=== PATIENT | female | born 1930 | race Caucasian/White ===

== ENCOUNTER 2018-01-30 18:01 | Inpatient (IN) | payer BC, MEDICARE ==
--- NOTE | 2018-01-30 18:03 | ER Report ---
History and Physical Time Seen By MD: 18:03 HPI/ROS CHIEF COMPLAINT: Trip and fall, left hip pain HISTORY OF PRESENT ILLNESS: 87-year-old female brought in by EMS from [facility] after a fall. Patient's complaining of left hip and pelvis pain. She was ambulatory after the fall. But with significant discomfort. EMS placed her in a pelvic binder and brought her to the emergency department. Patient denies syncope. She does have advanced dementia. Her work from [facility] for additional information. 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 Cardiovascular: No chest pain, no palpitations. Gastrointestinal: No vomiting, no abdominal pain. Musculoskeletal: No back pain. Allergies: Coded Allergies: No Known Drug Allergies (Unverified , 01/30/18) Home Meds Reported Medications Propylene Glycol/Peg 400/Pf (Systane 0.3-0.4% Eye Drops) 0.3 %-0.4 % Droperette , 2 DROP OP QDAY 01/31/18 Cholecalciferol (Vitamin D3) (VITAMIN D3) 1,000 Unit Tablet, 1000 UNIT PO BID, TAB 01/31/18 Ziprasidone Hcl (ZIPRASIDONE HCL) 60 Mg Capsule, 60 MG PO BID, CAPSULE 01/30/18 Vitamin E (VITAMIN E) 400 Unit Capsule, 400 UNIT PO QDAY, CAPSULE 01/30/18 [place] Jones (TUCKS) 1 Each Med..pad, 1 EACH TP 01/30/18 Tramadol Hcl (TRAMADOL HCL) 50 Mg Tablet, 50 MG PO QDAY Y for PAIN, TAB 01/30/18 Sertraline Hcl (SERTRALINE HCL) 50 Mg Tablet, 3 TAB PO QDAY, TAB 01/30/18 Mirtazapine (MIRTAZAPINE) 15 Mg Tablet, 15 MG PO QHS 01/30/18 Polyethylene Glycol 3350 (MIRALAX) 17 Gm Powd.pack, 17 GM PO QDAY, PKT 01/30/18 Mag Hydrox/Aluminum Hyd/Simeth (Maalox Advanced Suspension) 200 Mg-200 Mg-20 Mg/ 5 Ml Oral.susp, 30 ML PO Y for DYSPEPSIA 01/30/18 Lorazepam (LORAZEPAM) 1 Mg Tab, 1 MG PO Q6H for Anxiety, TAB 01/30/18 Multivitamin (MULTIVITAMINS) 1 Each Capsule, 1 EACH PO QDAY, CAPSULE 01/30/18 Simethicone (SIMETHICONE) 125 Mg Tab.chew, 125 MG PO Y for GAS, TAB.CHEW 01/30/18 [place]-3 Fatty Acids/Fish Oil (FISH OIL 1,000 MG SOFTGEL) 1 Each Capsule, 1 EACH PO TID, CAPSULE 01/30/18 Docusate Sodium (COLACE) 100 Mg Capsule, 100 MG PO QHS, CAPSULE 01/30/18 Methylcellulose (With Sugar) (CITRUCEL POWDER) 454 Gm Powder, 2 GM PO QHS 01/30/18 Multivitamin/Iron/Folic Acid (CENTRUM COMPLETE MULTIVIT TAB) 1 Each Tablet, 1 EACH PO QDAY 01/30/18 Calcium Carbonate (CALCIUM) 600 Mg Tablet, 600 MG PO BID 01/30/18 Aspirin (ASPIR 81) 81 Mg Tablet.dr, 81 MG PO QDAY, TAB 01/30/18 Acetaminophen (TYLENOL) 325 Mg Tablet, 650 MG PO Q4H Y for PAIN/TEMP OVER 100.4 , TAB 01/30/18 Discontinued Reported Medications Cholecalciferol (Vitamin D3) (VITAMIN D-3) 2,000 Unit Capsule, 1000 UNIT PO, CAPSULE 01/30/18 Ziprasidone Hcl (ZIPRASIDONE HCL) 20 Mg Capsule, 20 MG PO, CAPSULE 01/30/18 [place]-3/Dha/Epa/Fish Oil (Fish Oil 1,000 mg Softgel) 1,000 Mg (120 Mg-180 Mg) Capsule 01/30/18 Methylcellulose (With Sugar) (CITRUCEL POWDER) 454 Gm Powder, 2 GM PO PRN 01/30/18 Past Medical/Surgical History Patient has a history of coronary artery disease, chronic myelogenous leukemia in remission, thrombocytopenia, hyperglycemia, macular degeneration, spinal stenosis, allergic rhinitis, osteoarthritis, 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 Reviewed Nurses Notes: Yes Old Medical Records Reviewed: Yes Constitutional Vital Sign - Last 24 Hours 01/30/18 01/30/18 01/30/18 01/30/18 18:07 18:28 18:31 18:46 Temp 97.8 Pulse 69 70 70 Resp 20 B/P (MAP) 122/60 122/60 (80) Pulse Ox 92 92 90 O2 Delivery Room Air 01/30/18 01/30/18 01/30/18 01/30/18 18:51 19:06 19:36 19:41 Pulse 71 69 72 B/P (MAP) 138/72 (94) Pulse Ox 90 93 93 01/30/18 01/30/18 01/30/18 01/30/18 19:51 20:30 21:00 21:05 Pulse 73 72 Resp 21 26 B/P (MAP) 114/60 (78) 135/61 (85) Pulse Ox 91 96 01/30/18 01/30/18 01/30/18 01/30/18 21:20 21:25 21:30 21:40 Pulse 75 75 74 Resp 26 25 26 B/P (MAP) 128/59 (82) Pulse Ox 91 90 91 01/30/18 01/30/18 01/30/18 01/30/18 21:55 22:00 22:10 22:25 Pulse 77 75 79 Resp 23 20 23 B/P (MAP) 120/69 (86) Pulse Ox 94 88 Physical Exam Vital signs stable, afebrile, pulse ox normal General Appearance: The patient is alert, has no immediate need for airway protection and no current signs of toxicity. Mild distress, alert and oriented , obvious dementia, palpation of the head and neck reveal no tenderness or trauma HEENT: Pupils equal and round no injection. Oropharynx without redness or exudate, mucous membranes are moist, no dental trauma noted Respiratory: Chest is non tender, lungs are clear to auscultation. No chest wall tenderness on palpation Cardiac: regular rate and rhythm Gastrointestinal: Abdomen is soft and non tender, no masses, bowel sounds normal. Musculoskeletal: Neck: Neck is supple and non tender. Extremities have full range of motion and are non tender. There is tenderness on palpation of the left hip region. There is pain with movement of the left hip, left lower extremity is neurovascularly intact. There is no external rotation or shortening noted Skin: No rashes or lesions. DIFFERENTIAL DIAGNOSIS: After history and physical exam differential diagnosis was considered for fall in the elderly including but not limited to intracranial injury, long bone and pelvic bone fracture, spinal injury, and intrathoracic injury. Medical Decision Making Data Points Result Diagram: 01/31/18 1207 01/31/18 0550 Laboratory Hematology Test 01/30/18 00:00 01/30/18 19:42 Prothrombin Time 13.8 seconds (12.0-14.4) Prothromb Time International Ratio 1.05 Activated Partial Thromboplast Time 28 seconds (23-35) Magnesium Level 2.1 mg/dl (1.7-2.2) Troponin I < 0.012 ng/ml Chemistry Test 01/30/18 00:00 01/30/18 19:42 Prothrombin Time 13.8 seconds (12.0-14.4) Prothromb Time International Ratio 1.05 Activated Partial Thromboplast Time 28 seconds (23-35) Magnesium Level 2.1 mg/dl (1.7-2.2) Troponin I < 0.012 ng/ml Coagulation Test 01/30/18 00:00 Prothrombin Time 13.8 seconds Prothromb Time International Ratio 1.05 Activated Partial Thromboplast Time 28 seconds EKG/Imaging EKG Interpretation 12 lead EK Rhythm: normal sinus rhythm [place]: normal QRS: Right bundle branch block pattern,? Old anterior Q waves ST segments: normal Imaging X-ray: Left hip 3 views was obtained. I viewed the images myself on the PACS system. My interpretation of the images is: There is a suspicious lucency of the left inferior initial ringing. Radiology notes no obvious fracture. The radiologist interpretation had no clinically significant variation from this interpretation. Results: CT scan of the pelvis without contrast was obtained. The results of the study are PELVIS W/O CONTRAST Indication: Fall, unable to bear weight. Comparison: None. Technique: CT from the iliac crest through the pubic symphysis obtained without contrast. One of the following dose optimization techniques was utilized in the performance of this exam: Automated exposure control; adjustment of the mA and/ or kV according to the patient's size; or use of an iterative reconstruction technique. Specific details can be referenced in the facility's radiology CT exam operational policy. Findings: Minimally displaced fractures are seen left superior and inferior pubic ramus. Proximal right and left femur are intact. Nondisplaced fracture of the anterior portion of the left sacral joaquin are seen. There is mild widening of the left sacroiliac joint. Right sacral joaquin and right sacroiliac joints are normal. Right and left iliac bones are normal. Right and left hip joints are in good alignment. Soft tissues demonstrate mild thickening of the left pectineus muscle, consistent with contusion. There is a moderate amount of free fluid adjacent to the urinary bladder, consistent with hematoma. Diverticular changes are seen on the sigmoid colon. IMPRESSION: 1. Minimally displaced fractures involving the superior and inferior left pubic ramus, and the left sacral joaquin. 2. Mild displacement of the left sacroiliac joint. 3. Small amount of free fluid in the left side of the pelvis, consistent with hematoma. The study was read by the radiologist. I viewed the images myself on the PACS system. ED Course/Re-evaluation Clinical Indication for ER IV: Hydration, IV Access ED Course Patient was admitted to an examination room. H&P was done. The differential diagnoses was considered. On clinical examination. Patient has a painful left hip area. On examination. Her left lower externally is neurovascularly intact. Diagnostic x-rays are suspicious for fracture. We proceeded to CT scan of the pelvis. Further diagnostic evaluation was completed to rule out medical causes for her fall. She has elevated white blood cell count of 44, 000. She has a history of CML in remission. Her coags are normal. Her H&H is stable. Her vital signs remained stable throughout her several hour ER course. Consideration for transfer, the weather conditions are quite severe. It is potentially dangerous to transfer the patient tonight. Patient will be admitted to general surgery under trauma care by Dr. Charley Snyder. 01/30/2018 8:57:14 pm case discussed with Dr. Elías Johansen orthopedics on-call, who advised that she be transferred to a facility with a higher level of orthopedic care. She may need interventional radiologist for the hematoma in her pelvis. 01/30/2018 9:33:16 pm case discussed with Dr. Jomar Taylor trauma surgery at [facility] and Dr. Charley Snyder, general surgery on-call here at [facility], who agrees to watch the patient overnight and then transfer in the morning when the roads her safe for travel by EMS. Decision to Disposition Date: Jan 30, 2018 Decision to Disposition Time: 19:01 Critical Care Time I spent a total of 60 minutes of critical care time in obtaining history, performing a physical exam, bedside monitoring of interventions, collecting and interpreting tests and discussion with consultants but not including time spent performing procedures. Depart Departure Latest Vital Signs Vital Signs Date Time Temp Pulse Resp B/P (MAP) Pulse Ox O2 Delivery O2 Flow Rate FiO2 01/30/18 22:25 79 23 88 01/30/18 22:00 120/69 (86) 01/30/18 18:07 97.8 Room Air Impression: Primary Impression: Pelvic ring fracture Additional Impressions: Fall in elderly patient CML in remission Thrombocytopenia Dementia Condition: Improved Disposition: Admitted from ER Referrals: [facility] (PCP) Problem Qualifiers Primary Impression: Pelvic ring fracture Encounter type: initial encounter Fracture type: closed Qualified Codes: S32.810A - Multiple fractures of pelvis with stable disruption of pelvic ring, initial encounter for closed fracture Additional Impressions: Dementia Dementia type: unspecified type Dementia behavioral disturbance: without behavioral disturbance Qualified Codes: F03.90 - Unspecified dementia without behavioral disturbance AUTUMN BECKFORD DO Jan 30, 2018 18:03
[2018-01-30] MEDS ORDERED: LOR1 PO (18:42)
[2018-01-30] MEDS ORDERED: WITC1MED12 TP (18:42)
[2018-01-30] MEDS ORDERED: CHOL200074 PO (18:42)
[2018-01-30] MEDS ORDERED: OMEG10007 (18:42)
[2018-01-30] MEDS ORDERED: POLY17PO25 PO (18:42)
[2018-01-30] MEDS ORDERED: ASPI-1471 PO (18:42)
[2018-01-30] MEDS ORDERED: ACET-1966 PO (18:42)
[2018-01-30] MEDS ORDERED: ZIPR20CA23 PO (18:42)
[2018-01-30] MEDS ORDERED: MIRT-22 PO (18:42)
[2018-01-30] MEDS ORDERED: MAG-65 PO (18:42)
[2018-01-30] MEDS ORDERED: SERT-184 PO (18:42)
[2018-01-30] MEDS ORDERED: TRAM-420 PO (18:42)
[2018-01-30] MEDS ORDERED: ZIPR60CA18 PO (18:42)
[2018-01-30] MEDS ORDERED: MULT-768 PO (18:42)
[2018-01-30] MEDS ORDERED: METH454P5 PO ×2 (18:42)
[2018-01-30] MEDS ORDERED: MULT1CAP59 PO (18:42)
[2018-01-30] MEDS ORDERED: OMEG-23 PO (18:42)
[2018-01-30] MEDS ORDERED: DOCU-416 PO (18:42)
[2018-01-30] MEDS ORDERED: CALC600T63 PO (18:42)
[2018-01-30] MEDS ORDERED: SIME125T3 PO (18:42)
[2018-01-30] MEDS ORDERED: VITA-139 PO (18:42)
--- NOTE | 2018-01-30 18:51 | RADIOLOGY IMAGING REPORT ---
FACILITY: [facility] [place] PATIENT NAME: Ginna Morfin : 1930 MR: [id number] V: [id number] EXAM DATE: ORDERING PHYSICIAN: AUTUMN BECKFORD TECHNOLOGIST: [place] [facility] [place] Ginna Morfin : 1930 Visit/Account:[id number] Date of Sevice: 01/30/2018 ADDENDUM #1 At the request of the ordering physician, images were reviewed. Concern for possible fracture seen le ft superior and inferior pubic ramus. There are multiple overlying lucencies, from soft tissue as wel l as bowel. Recommend noncontrast CT of the pelvis for further evaluation. Report Dictated By: John Thomson at 01/30/2018 8:26 PM Report E-Signed By: John Thomson at 01/30/2018 8:27 PM ORIGINAL REPORT HIP LEFT Indication: fall Comparison: None. Findings: The bones of the pelvis and the proximal right and left femur are intact. There is no evide nce of malalignment. Soft tissues are normal. Large amount of stool is seen throughout the colon. IMPRESSION: 1. Negative pelvis and left hip radiograph. No evidence of fracture or dislocation. 2. Large amount of stool throughout the colon. This can represent constipation in the right clinical setting. Report Dictated By: John Thomson at 01/30/2018 6:48 PM Report E-Signed By: John Thomson at 01/30/2018 6:49 PM WSN:[id number]
[2018-01-30] MEDS ORDERED: NS(*) 0.9% 1000 ML BAG 1,000 ML IV ONE (19:26)
--- NOTE | 2018-01-30 19:42 | EKG ---
FACILITY: [facility] PATIENT NAME: NERIS DELCID : [id number] MR: [id number] V: [id number] EXAM DATE: ORDERING PHYSICIAN: AUTUMN BECKFORD TECHNOLOGIST: Jared Gale Reason : Blood Pressure : / mmHG Vent. Rate : 069 BPM Atrial Rate : 069 BPM P-R Int : 144 ms QRS Dur : 124 ms QT Int : 414 ms P-R-T Axes : 001 058 055 degrees QTc Int : 443 ms Normal sinus rhythm Right bundle branch block Possible Anterolateral infarct , age undetermined Abnormal ECG No previous ECGs available Confirmed by VIJI WHITT ([id number]) on 01/30/2018 11:59:21 PM Referred By: Confirmed By:VIJI WHITT
[2018-01-30 19:55] LABS: PLATELET COUNT, AUTOMATED 127 K/uL (150-450)
--- NOTE | 2018-01-30 20:31 | RADIOLOGY IMAGING REPORT ---
[place] [facility] [place]: Ginna Morfin : 1930 MR: [id number] V: [id number] EXAM DATE: ORDERING PHYSICIAN: AUTUMN BECKFORD TECHNOLOGIST: Location: [facility] Patient: Ginna Morfin : 1930 Visit/Account:[id number] Date of Sevice: 01/30/2018 CHEST SINGLE AP Indication: Fall, unable to bear weight. Comparison: None. Findings: Lungs: Clear. Mediastinum/pulmonary vasculature: Heart size and pulmonary vasculature are normal. Bones/soft tissues: Normal. IMPRESSION: Clear lungs. Report Dictated By: John Thomson at 01/30/2018 8:27 PM Report E-Signed By: John Thomson at 01/30/2018 8:28 PM WSN:[id number]
--- NOTE | 2018-01-30 20:39 | RADIOLOGY IMAGING REPORT ---
FACILITY: [facility] [place] PATIENT NAME: Ginna Morfin : 1930 MR: [id number] V: [id number] EXAM DATE: ORDERING PHYSICIAN: AUTUMN BECKFORD TECHNOLOGIST: [place] [facility] [place] Ginna Morfin : 1930 Visit/Account:[id number] Date of Sevice: 01/30/2018 PELVIS W/O CONTRAST Indication: Fall, unable to bear weight. Comparison: None. Technique: CT from the iliac crest through the pubic symphysis obtained without contrast. One of the following dose optimization techniques was utilized in the performance of this exam: Autom ated exposure control; adjustment of the mA and/or kV according to the patient's size; or use of an i terative reconstruction technique. Specific details can be referenced in the facility's radiology C T exam operational policy. Findings: Minimally displaced fractures are seen left superior and inferior pubic ramus. Proximal rig ht and left femur are intact. Nondisplaced fracture of the anterior portion of the left sacral joaquin are seen. There is mild widenin g of the left sacroiliac joint. Right sacral joaquin and right sacroiliac joints are normal. Right and left iliac bones are normal. Right and left hip joints are in good alignment. Soft tissues demonstrate mild thickening of the left pectineus muscle, consistent with contusion. The re is a moderate amount of free fluid adjacent to the urinary bladder, consistent with hematoma. Dive rticular changes are seen on the sigmoid colon. IMPRESSION: 1. Minimally displaced fractures involving the superior and inferior left pubic ramus, and the left s acral joaquin. 2. Mild displacement of the left sacroiliac joint. 3. Small amount of free fluid in the left side of the pelvis, consistent with hematoma. This was called by Dr. Thomson to AUTUMN BECKFORD on 01/30/2018 8:27 PM Report Dictated By: John Thomson at 01/30/2018 8:27 PM Report E-Signed By: John Thomson at 01/30/2018 8:36 PM WSN:[id number]
[2018-01-30 21:53] LABS: INR 1.05
--- NOTE | 2018-01-30 22:34 | Gen Surgery History & Physical ---
History of Present Illness Chief Complaint left hip pain History of Present Illness 87 yo female with multiple co-morbidities admitted after ground level fall at local nursing facility. No antecedent symptoms per pt or half-way records. She is DNR which is confirmed with son/POA in [place] via phone. History Unable To Obtain Past Medical: half-way records reviewed Problems: Home Meds Reported Medications Ziprasidone Hcl (ZIPRASIDONE HCL) 60 Mg Capsule, 60 MG PO BID, CAPSULE 01/30/18 Vitamin E (VITAMIN E) 400 Unit Capsule, 400 UNIT PO QDAY, CAPSULE 01/30/18 Cholecalciferol (Vitamin D3) (VITAMIN D-3) 2,000 Unit Capsule, 1000 UNIT PO, CAPSULE 01/30/18 [place] (TUCKS) 1 Each Med..pad, 1 EACH TP 01/30/18 Tramadol Hcl (TRAMADOL HCL) 50 Mg Tablet, 50 MG PO QDAY, TAB 01/30/18 Sertraline Hcl (SERTRALINE HCL) 50 Mg Tablet, 3 TAB PO QDAY, TAB 01/30/18 Mirtazapine (MIRTAZAPINE) 15 Mg Tablet, 15 MG PO QHS 01/30/18 Polyethylene Glycol 3350 (MIRALAX) 17 Gm Powd.pack, 17 GM PO QDAY, PKT 01/30/18 Mag Hydrox/Aluminum Hyd/Simeth (Maalox Advanced Suspension) 200 Mg-200 Mg-20 Mg/ 5 Ml Oral.susp, 30 ML PO 01/30/18 Lorazepam (LORAZEPAM) 1 Mg Tab, 1 MG PO Q6H for Anxiety, TAB 01/30/18 Multivitamin (MULTIVITAMINS) 1 Each Capsule, 1 EACH PO QDAY, CAPSULE 01/30/18 Simethicone (SIMETHICONE) 125 Mg Tab.chew, 125 MG PO, TAB.CHEW 01/30/18 [place]-3 Fatty Acids/Fish Oil (FISH OIL 1,000 MG SOFTGEL) 1 Each Capsule, 1 EACH PO TID, CAPSULE 01/30/18 Docusate Sodium (COLACE) 100 Mg Capsule, 100 MG PO QHS, CAPSULE 01/30/18 Methylcellulose (With Sugar) (CITRUCEL POWDER) 454 Gm Powder, 454 GM PO QHS 01/30/18 Multivitamin/Iron/Folic Acid (CENTRUM COMPLETE MULTIVIT TAB) 1 Each Tablet, 1 EACH PO QDAY 01/30/18 Calcium Carbonate (CALCIUM) 600 Mg Tablet, 600 MG PO BID 01/30/18 Aspirin (ASPIR 81) 81 Mg Tablet.dr, 81 MG PO QDAY, TAB 01/30/18 Acetaminophen (TYLENOL) 325 Mg Tablet, 325 MG PO, TAB 01/30/18 Discontinued Reported Medications Ziprasidone Hcl (ZIPRASIDONE HCL) 20 Mg Capsule, 20 MG PO, CAPSULE 01/30/18 [place]-3/Dha/Epa/Fish Oil (Fish Oil 1,000 mg Softgel) 1,000 Mg (120 Mg-180 Mg) Capsule 01/30/18 Methylcellulose (With Sugar) (CITRUCEL POWDER) 454 Gm Powder, 2 GM PO PRN 01/30/18 Allergies: Coded Allergies: No Known Drug Allergies (Unverified , 01/30/18) Review of Systems Other unable due to pt's dementia Exam General Appearance: Alert, Awake, No Acute Distress, Afebrile Neuro: No Gross deficits Eyes: PERRLA ENT: Moist Mucous Membranes Neck: No Masses Cardiovascular: Normal Rhythm & Peripheral Pulses, Regular Rate and Rhythm, No Edema, No JVD Respiratory: No Respiratory Distress, Clear to Auscultation GI: Abd Soft and Non-Tender : Normal Lymph: No Adenopathy Musculoskeletal: Other (Left hip pain and pelvis tender) Extremities: Soft and Non Tender, Warm, Pulses, Perfused Integumentary: Skin Intact without Lesion / Mass Psych: Appropriate Mood & Affect, Other (follows simple commands) Medical Decision Making Data Points Result Diagram: 01/30/18194101/30/181941 EKG / Imaging Monitor Interpretation: Normal Sinus Rhythm Pre-Admit Course Medical Record Review: Yes Assessment and Plan Problems: (1) Pelvic fracture Status: Acute Assessment & Plan: 87 yo female hemodynamically stable with small hematoma around multiple pelvic fractures. Admit with close observation, serial Hgb, Ortho and Internal Medicine consult, and PT/OT. Central Venous Access Medical Necessity for Access: Hemodynamic Monitoring, IV Access Time Spent: > 30 min Critical Time Spent: 1st 30-74 Minutes Venous Thromboembolism VTE Risk Physician Assess for VTE Risk: Yes Patient's VTE Risk: High VTE Diagnostic Test 2 Days Prior to Admit: No Antithrombotics Is Pt On Any Antithrombotics?: No Prophylaxis Tx Contraindicated Pharmacological Contraindicati: Active Bleeding Mechanical Contraindications: Pt/Family Refused Problem Qualifiers (1) Pelvic fracture: Encounter type: initial encounter Pelvic bone location: multiple parts Fracture type: closed KAVITA LIM MD Jan 30, 2018 22:34
[2018-01-30] MEDS ORDERED: NALOXONE HCL 0.4 MG/ML VIAL IVP PRN (22:35)
[2018-01-30] MEDS ORDERED: KCL/D1/2NS 20 MEQ 1000 ML 1,000 ML IV PRN (22:35)
[2018-01-30 23:00] VITALS: BP 145/68
[2018-01-30] MEDS ORDERED: LORazepam 2 MG/ML VIAL IVP PRN (23:15)
[2018-01-30] MEDS ORDERED: MAGNESIUM HYDROXIDE* 30ML UDCP PO PRN (23:30)
[2018-01-30] MEDS ORDERED: BISACODYL 10 MG SUPP PR PRN (23:30)
--- NOTE | 2018-01-30 23:37 | Hospitalist Consultation ---
History of Present Illness Requesting Physician Dr. Snyder Reason for Consult Medication Management History of Present Illness 87yo female with advanced dementia and CML who has a small hematoma around multiple pelvic fractures after a fall tonight at the [facility]. It isn't clear what caused the fall, but she was reportedly able to ambulate after it. I spoke with her son to get history, but he lives in [place], so wasn't able to give any recent history. The patient was recently brought to [place] from [place] to be closer to a daughter. 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 (2) Thrombocytopenia Status: Chronic (3) Dementia Status: Chronic Home Meds Reported Medications Ziprasidone Hcl (ZIPRASIDONE HCL) 60 Mg Capsule, 60 MG PO BID, CAPSULE 01/30/18 Vitamin E (VITAMIN E) 400 Unit Capsule, 400 UNIT PO QDAY, CAPSULE 01/30/18 Cholecalciferol (Vitamin D3) (VITAMIN D-3) 2,000 Unit Capsule, 1000 UNIT PO, CAPSULE 01/30/18 Carson Jones (TUCKS) 1 Each Med..pad, 1 EACH TP 01/30/18 Tramadol Hcl (TRAMADOL HCL) 50 Mg Tablet, 50 MG PO QDAY, TAB 01/30/18 Sertraline Hcl (SERTRALINE HCL) 50 Mg Tablet, 3 TAB PO QDAY, TAB 01/30/18 Mirtazapine (MIRTAZAPINE) 15 Mg Tablet, 15 MG PO QHS 01/30/18 Polyethylene Glycol 3350 (MIRALAX) 17 Gm Powd.pack, 17 GM PO QDAY, PKT 01/30/18 Mag Hydrox/Aluminum Hyd/Simeth (Maalox Advanced Suspension) 200 Mg-200 Mg-20 Mg/ 5 Ml Oral.susp, 30 ML PO 01/30/18 Lorazepam (LORAZEPAM) 1 Mg Tab, 1 MG PO Q6H for Anxiety, TAB 01/30/18 Multivitamin (MULTIVITAMINS) 1 Each Capsule, 1 EACH PO QDAY, CAPSULE 01/30/18 Simethicone (SIMETHICONE) 125 Mg Tab.chew, 125 MG PO, TAB.CHEW 01/30/18 [place]-3 Fatty Acids/Fish Oil (FISH OIL 1,000 MG SOFTGEL) 1 Each Capsule, 1 EACH PO TID, CAPSULE 01/30/18 Docusate Sodium (COLACE) 100 Mg Capsule, 100 MG PO QHS, CAPSULE 01/30/18 Methylcellulose (With Sugar) (CITRUCEL POWDER) 454 Gm Powder, 454 GM PO QHS 01/30/18 Multivitamin/Iron/Folic Acid (CENTRUM COMPLETE MULTIVIT TAB) 1 Each Tablet, 1 EACH PO QDAY 01/30/18 Calcium Carbonate (CALCIUM) 600 Mg Tablet, 600 MG PO BID 01/30/18 Aspirin (ASPIR 81) 81 Mg Tablet.dr, 81 MG PO QDAY, TAB 01/30/18 Acetaminophen (TYLENOL) 325 Mg Tablet, 325 MG PO, TAB 01/30/18 Discontinued Reported Medications Ziprasidone Hcl (ZIPRASIDONE HCL) 20 Mg Capsule, 20 MG PO, CAPSULE 01/30/18 [place]-3/Dha/Epa/Fish Oil (Fish Oil 1,000 mg Softgel) 1,000 Mg (120 Mg-180 Mg) Capsule 01/30/18 Methylcellulose (With Sugar) (CITRUCEL POWDER) 454 Gm Powder, 2 GM PO PRN 01/30/18 Allergies: Coded Allergies: No Known Drug Allergies (Unverified , 01/30/18) Hx Alcohol Use: No Review of Systems Other The patient isn't able to give much history Exam Vital Signs Vital Signs Date Time Temp Pulse Resp B/P (MAP) Pulse Ox O2 Delivery O2 Flow Rate FiO2 01/30/18 23:00 98.3 75 20 145/68 (93) 87 Room Air General Appearance: Alert, Awake, No Acute Distress Cardiovascular: Regular Rate and Rhythm Respiratory: Clear to Auscultation GI: Abd Soft and Non-Tender Extremities: No Edema Medical Decision Making Data Points Result Diagram: 01/30/18194101/30/181941 Item Value Date Time Magnesium Level 2.1 mg/dl 01/30/181941 Total Bilirubin 0.3 mg/dl 01/30/181941 Aspartate Amino Transf (AST/SGOT) 46 U/L H 01/30/181941 Alanine Aminotransferase (ALT/SGPT) 50 U/L 01/30/181941 Alkaline Phosphatase 129 U/L H 01/30/181941 Troponin I < 0.012 ng/ml 01/30/181941 Random Glucose 140 mg/dl H 01/30/181941 Blood Urea Nitrogen 21 mg/dl H 01/30/181941 White Blood Count 44.2 k/uL *H 01/30/181941 Neutrophils (%) (Auto) 18.3 % L 01/30/181941 Lymphocytes (%) (Auto) 79.3 % H 01/30/181941 Monocytes (%) (Auto) 1.9 % L 01/30/181941 Eosinophils (%) (Auto) 0.1 % L 01/30/181941 Platelet Count 127 K/uL L 01/30/181941 Prothromb Time International Ratio 1.05 01/30/18 0000 Urine Leukocyte Esterase Trace H 01/30/181933 Urine RBC 97 /HPF 01/30/181933 Urine WBC 2 /HPF 01/30/181933 Urine Squamous Epithelial Cells Many /LPF H 01/30/181933 Urine Blood Small 01/30/181933 EKG / Imaging EKG Interpretation RBBB with diffuse T flattening. Imaging CXR - Clear lungs. Pelvis CT - 1. Minimally displaced fractures involving the superior and inferior left pubic ramus, and the left sacral joaquin. 2. Mild displacement of the left sacroiliac joint. 3. Small amount of free fluid in the left side of the pelvis, consistent with hematoma. Hip Xray - 1. Negative pelvis and left hip radiograph. No evidence of fracture or dislocation. 2. Large amount of stool throughout the colon. This can represent constipation in the right clinical setting. Assessment and Plan Problems: (1) Pelvic fracture Status: Acute Assessment & Plan: She has a small hematoma around multiple pelvic fractures after a fall. The patient was going to be transferred, but General Surgery has agreed to admit her. 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 Her son reports that this long standing and not amendable to treatment. WBC very high with a lymphocyte predominance. Will follow. (3) Thrombocytopenia Status: Chronic Assessment & Plan: Reportedly a chronic problem. Will follow. (4) Dementia Status: Chronic Assessment & Plan: Continue chronic Geodon, Remeron and prn Ativan. (5) Constipation Status: Chronic Assessment & Plan: She is chronically on methylcellulose and MiraLax. Will continue MiraLax and add Docusate. She can get MOM and Dulcolax suppository prn. Copies to: [employer] APRN QUALITY CONTROL TECHNICIAN-C; KAVITA SNYDER MD Venous Thromboembolism Antithrombotics Is Pt On Any Antithrombotics?: No Exam Sepsis Risk: No Definite Risk Problem Qualifiers (1) Pelvic fracture: Encounter type: initial encounter Pelvic bone location: multiple parts Fracture type: closed (2) Dementia: Dementia type: unspecified type Dementia behavioral disturbance: without behavioral disturbance Qualified Codes: F03.90 - Unspecified dementia without behavioral disturbance VIJI WHITT MD Jan 30, 2018 23:37
[2018-01-31] MEDS: MELATONIN 3 MG TAB PO SCH ×2 (00:09→21:23)
[2018-01-31] MEDS: MIRTAZAPINE 15 MG TAB PO SCH ×2 (00:10→21:23)
[2018-01-31] MEDS: ACETAMINOPHEN 325 MG TAB PO PRN ×3 (00:26→21:23)
[2018-01-31] MEDS: ZIPRASIDONE 20 MG CAP PO SCH ×3 (00:26→21:22)
[2018-01-31 03:25] VITALS: BP 95/53
[2018-01-31 05:34] VITALS: BP 111/67
[2018-01-31] MEDS ORDERED: PROP1DRO6 OP (06:02)
[2018-01-31] MEDS ORDERED: CHOL10005 PO (06:02)
--- NOTE | 2018-01-31 06:55 | Hospitalist Progress Note ---
Subjective Progress Notes Subjective The patient slept through most of the night. A catheter was placed due to urine retention. Physical Exam Vital Signs Date Time Temp Pulse Resp B/P (MAP) Pulse Ox O2 Delivery O2 Flow Rate FiO2 01/31/18 05:34 65 16 111/67 (82) 97 Nasal Cannula 1.0 01/31/18 03:25 98.3 General Appearance: No Acute Distress Integumentary: No Jaundice, No Cyanosis Result Diagram: 01/30/18194101/31/18 0550 Monitor Interpretation: Normal Sinus Rhythm Assessment and Plan Problems: (1) Pelvic fracture Status: Acute Assessment & Plan: She has a small hematoma around multiple pelvic fractures after a fall. The patient was going to be transferred, but General Surgery has agreed to admit her. 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 Her son reports that this long standing and not amendable to treatment. WBC very high with a lymphocyte predominance. Will follow. (3) Thrombocytopenia Status: Chronic Assessment & Plan: Reportedly a chronic problem. Will follow. (4) Dementia Status: Chronic Assessment & Plan: Continue chronic Geodon, Remeron and prn Ativan. (5) Constipation Status: Chronic Assessment & Plan: She is chronically on methylcellulose and MiraLax. Will continue MiraLax and add Docusate. She can get MOM and Dulcolax suppository prn. Exam Sepsis Risk: No Definite Risk Problem Qualifiers (1) Pelvic fracture: Encounter type: initial encounter Pelvic bone location: multiple parts Fracture type: closed (2) Dementia: Dementia type: unspecified type Dementia behavioral disturbance: without behavioral disturbance Qualified Codes: F03.90 - Unspecified dementia without behavioral disturbance VIJI WHITT MD Jan 31, 2018 06:55
[2018-01-31 07:21] LABS: PLATELET COUNT, AUTOMATED 102 K/uL (150-450)
[2018-01-31 08:32] VITALS: BP 105/63
[2018-01-31] MEDS: traMADol 50 MG TAB PO PRN (10:08)
[2018-01-31] MEDS: PANTOPRAZOLE SOD 40 MG TABEC PO SCH (10:08)
[2018-01-31] MEDS: DOCUSATE SODIUM 100 MG CAP PO SCH ×2 (10:09→21:22)
[2018-01-31] MEDS: POLYETHYLENE GLYCOL 17 GM PKT PO SCH (10:09)
[2018-01-31] MEDS: SERTRALINE HCL 50 MG TAB PO SCH (10:09)
--- NOTE | 2018-01-31 10:14 | General Surgery Progress Note ---
Subjective Progress Notes Subjective Complains left hip pain. Unable to use the bedpan due to pain, thus juan placed overnight. Physical Exam Vital Signs Date Time Temp Pulse Resp B/P (MAP) Pulse Ox O2 Delivery O2 Flow Rate FiO2 01/31/18 09:02 71 01/31/18 08:32 98.3 67 18 105/63 (77) Nasal Cannula 1.0 General Appearance: Alert, Awake, No Acute Distress, Afebrile Neuro: No Gross deficits, Other (Oriented X1, baseline per report) Eyes: PERRLA Neck: No Masses Cardiovascular: Normal Rhythm & Peripheral Pulses, Regular Rate and Rhythm Respiratory: No Respiratory Distress, Clear to Auscultation GI: Soft and Non-Tender Musculoskeletal: Other (LLE shortened and internally rotated more than prior exam, pelvic binder off) Extremities: Warm, Pulses, Perfused, Other (no edema) Integumentary: Skin Intact without Lesion / Mass, Generalized Fragile Skin Psych: Appropriate Mood & Affect Result Diagram: 01/31/18 0550 01/31/18 0550 Monitor Interpretation: Normal Sinus Rhythm Assessment and Plan Problems: (1) Pelvic fracture Status: Acute Assessment & Plan: 87 yo female hemodynamically stable with small hematoma around multiple pelvic fractures. Admit with close observation, serial Hgb, Ortho and Internal Medicine consult, and PT/OT. 01/31/2018 Hgb has drifted a bit, though Vitals remain stable. Repeat Hgb at noon and in am. Discussed with Ortho who will see pt this am and clarify weight bearing status. (2) Fall in elderly patient Status: Acute Assessment & Plan: PT and OT eval when cleared. (3) Constipation Status: Chronic Assessment & Plan: She is chronically on methylcellulose and MiraLax. Will continue MiraLax and add Docusate. She can get MOM and Dulcolax suppository prn. Start Colace BID. (4) Dementia Status: Chronic Assessment & Plan: Continue chronic Geodon, Remeron and prn Ativan. Neuro status seems at baseline. Cont to monitor. 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 Her son reports that this long standing and not amendable to treatment. WBC very high with a lymphocyte predominance. Will follow. (6) Thrombocytopenia Status: Chronic Assessment & Plan: Reportedly a chronic problem. Will follow. (7) Urinary retention Status: Acute Assessment & Plan: Continue Juan catheter and repeat UA with culture. Time Spent: > 30 min Exam Sepsis Risk: No Definite Risk Problem Qualifiers (1) Pelvic fracture: Encounter type: initial encounter Pelvic bone location: multiple parts Fracture type: closed (2) Dementia: Dementia type: unspecified type Dementia behavioral disturbance: without behavioral disturbance Qualified Codes: F03.90 - Unspecified dementia without behavioral disturbance KAVITA LIM MD Jan 31, 2018 10:14
--- NOTE | 2018-01-31 11:02 | Hospitalist Progress Note ---
Physical Exam Vital Signs Date Time Temp Pulse Resp B/P (MAP) Pulse Ox O2 Delivery O2 Flow Rate FiO2 01/31/18 09:02 71 01/31/18 08:32 98.3 67 18 105/63 (77) Nasal Cannula 1.0 Intake and Output 02/01/18 07:00 Intake Total 895 ml Balance 895 ml Intake Oral 120 ml IV Total 775 ml Result Diagram: 01/31/18 0550 01/31/18 0550 Monitor Interpretation: Normal Sinus Rhythm Assessment and Plan Problems: (1) Pelvic fracture Status: Acute Assessment & Plan: She has a small hematoma around multiple pelvic fractures after a fall. She is being managed by general and orthopedic surgery. 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 Her son reports that this long standing and not amendable to treatment. (3) Thrombocytopenia Status: Chronic Assessment & Plan: Reportedly a chronic problem. She is not on Lovenox. (4) Dementia Status: Chronic Assessment & Plan: She is on chronic treatment with Geodon, Remeron, and prn Ativan. (5) Constipation Status: Chronic Assessment & Plan: She is chronically on methylcellulose and MiraLax. Will continue MiraLax and add Docusate. She can get MOM and Dulcolax suppository prn. (6) Urinary retention Status: Acute Assessment & Plan: Continue Banuelos catheter and repeat UA with culture. Exam Sepsis Risk: No Definite Risk Problem Qualifiers (1) Pelvic fracture: Encounter type: initial encounter Pelvic bone location: multiple parts Fracture type: closed (2) Dementia: Dementia type: unspecified type Dementia behavioral disturbance: without behavioral disturbance Qualified Codes: F03.90 - Unspecified dementia without behavioral disturbance SIGIFREDO ROBERTSON DO Jan 31, 2018 11:02
[2018-01-31 13:11] VITALS: BP 94/68
[2018-01-31 19:51] VITALS: BP 111/88
[2018-01-31] MEDS: ARTIFICIAL TEARS OINT 7 GM 7 GM TUBE OP SCH (21:23)
[2018-01-31 23:22] VITALS: BP 114/55
[2018-02-01] VITALS (7 sets, daily range): BP systolic 93–118; BP diastolic 52–70
[2018-02-01] MEDS: traMADol 50 MG TAB PO PRN (03:39)
[2018-02-01 05:51] LABS: PLATELET COUNT, AUTOMATED 86 K/uL (150-450)
[2018-02-01] MEDS: POLYETHYLENE GLYCOL 17 GM PKT PO SCH (08:44)
[2018-02-01] MEDS: DOCUSATE SODIUM 100 MG CAP PO SCH ×2 (08:44→20:45)
[2018-02-01] MEDS: PANTOPRAZOLE SOD 40 MG TABEC PO SCH (08:45)
[2018-02-01] MEDS: ZIPRASIDONE 20 MG CAP PO SCH ×2 (08:45→20:46)
[2018-02-01] MEDS: ACETAMINOPHEN 325 MG TAB PO PRN ×2 (08:45→14:14)
[2018-02-01] MEDS: SERTRALINE HCL 50 MG TAB PO SCH (08:45)
--- NOTE | 2018-02-01 09:38 | General Surgery Progress Note ---
Subjective Progress Notes Subjective still complains of pain, unable to state where. Physical Exam Vital Signs Date Time Temp Pulse Resp B/P (MAP) Pulse Ox O2 Delivery O2 Flow Rate FiO2 02/01/18 08:22 98.5 20 93/52 (66) 92 Room Air 0.5 02/01/18 05:56 64 General Appearance: Alert, Awake, No Acute Distress, Afebrile Neuro: No Gross deficits, Other (Oriented X1, follows commands, [place], GCS15) ENT: Moist Mucous Membranes Neck: No Masses Cardiovascular: Normal Rhythm & Peripheral Pulses, Regular Rate and Rhythm Respiratory: No Respiratory Distress, Clear to Auscultation GI: Soft and Non-Tender Musculoskeletal: Other (Left hip pain) Extremities: Warm, Pulses, Perfused, Other (No CCE, left leg still internally rotated slightly) Integumentary: Skin Intact without Lesion / Mass, Generalized Fragile Skin Psych: Appropriate Mood & Affect, Other Result Diagram: 02/01/18 0502/01/18 05 Monitor Interpretation: Normal Sinus Rhythm Assessment and Plan Problems: (1) Pelvic fracture Status: Acute Assessment & Plan: 87 yo female hemodynamically stable with small hematoma around multiple pelvic fractures. Admit with close observation, serial Hgb, Ortho and Internal Medicine consult, and PT/OT. 01/31/2018 Hgb has drifted a bit, though Vitals remain stable. Repeat Hgb at noon and in am. Discussed with Ortho who will see pt this am and clarify weight bearing status. 02/01/2018 Stable overnight. Able to walk with assist/WBAT yesterday. Hgb stable, continue to trend. Anticipate transfer back to [facility] in the am. (2) Fall in elderly patient Status: Acute Assessment & Plan: PT and OT eval when cleared. 02/01/2018 Continue to mobilize with assist as alessio. (3) Constipation Status: Chronic Assessment & Plan: She is chronically on methylcellulose and MiraLax. Will continue MiraLax and add Docusate. She can get MOM and Dulcolax suppository prn. Start Colace BID. 02/01/2018 Normal BM yesterday, continue PO cathartics. (4) Dementia Status: Chronic Assessment & Plan: Continue chronic Geodon, Remeron and prn Ativan. Neuro status seems at baseline. Cont to monitor. 02/01/2018 No acute neuro changes. Cont home meds and monitor closely. 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 Her son reports that this long standing and not amendable to treatment. WBC very high with a lymphocyte predominance. Will follow. 02/01/2018 CML not on active treatment. follow WBC. (6) Thrombocytopenia Status: Chronic Assessment & Plan: Reportedly a chronic problem. Will follow. 02/01/2018 Chronic thrombocytopenia. Platelets continue to drift, repeat value in am. (7) Urinary retention Status: Acute Assessment & Plan: Continue Banuelos catheter and repeat UA with culture. 02/01/2018 Urine culture with minimal growth Ecoli, < 75,000 colonies. Not on antibiotics currently. Low grade temp noted overnight, follow closely. DC Banuelos and monitor PVR today. Time Spent: > 30 min Exam Sepsis Risk: No Definite Risk Problem Qualifiers (1) Pelvic fracture: Encounter type: initial encounter Pelvic bone location: multiple parts Fracture type: closed (2) Dementia: Dementia type: unspecified type Dementia behavioral disturbance: without behavioral disturbance Qualified Codes: F03.90 - Unspecified dementia without behavioral disturbance KAVITA LIM MD Feb 01, 2018 09:38
--- NOTE | 2018-02-01 10:21 | Hospitalist Progress Note ---
Subjective Progress Notes Subjective No concerns from staff. The patient reports no pain in bed, but does have pain with weight bearing in the pelvis. She denies CP/SOB. Physical Exam Vital Signs Date Time Temp Pulse Resp B/P (MAP) Pulse Ox O2 Delivery O2 Flow Rate FiO2 02/01/18 09:31 72 112/60 (77) 02/01/18 08:22 98.5 20 92 Room Air 0.5 Intake and Output 02/02/18 07:00 Intake Total 120 ml Output Total 550 ml Balance -430 ml Intake Oral 120 ml Output Urine Total 550 ml General Appearance: Alert, Awake, No Acute Distress Neuro: Other (Orientated to person only. However, brighter and not tangential as before. Can answer simple questions.) Extremities: No Edema Result Diagram: 02/01/1852202/01/18522 Monitor Interpretation: Normal Sinus Rhythm Assessment and Plan Problems: (1) Pelvic fracture Status: Acute Assessment & Plan: She has a small hematoma around multiple pelvic fractures after a fall. She is being managed by general and orthopedic surgery. She has been cleared to WBAT. 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 Her son reports that this long standing and not amendable to treatment. (3) Thrombocytopenia Status: Chronic Assessment & Plan: Reportedly a chronic problem. She is not on Lovenox. (4) Dementia Status: Chronic Assessment & Plan: She is on chronic treatment with Geodon, Remeron, and prn Ativan. (5) Constipation Status: Chronic Assessment & Plan: She is chronically on methylcellulose and MiraLax. Will continue MiraLax and add Docusate. She can get MOM and Dulcolax suppository prn. (6) Urinary retention Status: Acute Assessment & Plan: Currently with a Banuelos. She had 2 wbc in the urine. She has had temperatures about to 100 degrees. She is growing 50-75,000 cfu/ml of a GNR. At this point, would not treat unless she spikes a temperature. Exam Sepsis Risk: No Definite Risk Problem Qualifiers (1) Pelvic fracture: Encounter type: initial encounter Pelvic bone location: multiple parts Fracture type: closed (2) Dementia: Dementia type: unspecified type Dementia behavioral disturbance: without behavioral disturbance Qualified Codes: F03.90 - Unspecified dementia without behavioral disturbance VIJI WHITT MD Feb 01, 2018 10:21
[2018-02-01] MEDS: ARTIFICIAL TEARS OINT 7 GM 7 GM TUBE OP SCH (20:45)
[2018-02-01] MEDS: MELATONIN 3 MG TAB PO SCH (20:45)
[2018-02-01] MEDS: MIRTAZAPINE 15 MG TAB PO SCH (20:45)
[2018-02-02] MEDS: traMADol 50 MG TAB PO PRN ×2 (01:15→21:51)
[2018-02-02 03:20] VITALS: BP 108/54
[2018-02-02 05:56] LABS: PLATELET COUNT, AUTOMATED 93 K/uL (150-450)
[2018-02-02 06:47] VITALS: BP 104/58
--- NOTE | 2018-02-02 08:01 | General Surgery Progress Note ---
Subjective Progress Notes Subjective No complaints but pt unable to provide much history or clearly communicate present complaints due to dementia. Physical Exam Vital Signs Date Time Temp Pulse Resp B/P (MAP) Pulse Ox O2 Delivery O2 Flow Rate FiO2 02/02/18 07:19 86 02/02/18 07:19 Room Air 02/02/18 06:47 99.0 70 16 104/58 (73) 0.5 General Appearance: Alert, Awake, No Acute Distress, Afebrile GI: Soft and Non-Tender Extremities: Warm, Perfused Result Diagram: 02/02/18 0525 02/02/18 0525 Monitor Interpretation: Normal Sinus Rhythm Assessment and Plan Problems: (1) Pelvic fracture Status: Acute Assessment & Plan: 87 yo female hemodynamically stable with small hematoma around multiple pelvic fractures. Admit with close observation, serial Hgb, Ortho and Internal Medicine consult, and PT/OT. 01/31/2018 Hgb has drifted a bit, though Vitals remain stable. Repeat Hgb at noon and in am. Discussed with Ortho who will see pt this am and clarify weight bearing status. 02/01/2018 Stable overnight. Able to walk with assist/WBAT yesterday. Hgb stable, continue to trend. Anticipate transfer back to [facility] in the am. 02/02/18: Doing well. Stable vitals. Platelets up a little this morning but Hb down. Will follow this. Pt apparently cannot get up to ambulate, even with assistance. Will have PT reevaluate her today while we follow her Hb. If Hb stable based on labs tomorrow morning and depending on PT/OT eval, she may be able to go back to [facility] tomorrow. (2) Fall in elderly patient Status: Acute Assessment & Plan: PT and OT eval when cleared. 02/01/2018 Continue to mobilize with assist as alessio. (3) Constipation Status: Chronic Assessment & Plan: She is chronically on methylcellulose and MiraLax. Will continue MiraLax and add Docusate. She can get MOM and Dulcolax suppository prn. Start Colace BID. 02/01/2018 Normal BM yesterday, continue PO cathartics. (4) Dementia Status: Chronic Assessment & Plan: Continue chronic Geodon, Remeron and prn Ativan. Neuro status seems at baseline. Cont to monitor. 02/01/2018 No acute neuro changes. Cont home meds and monitor closely. 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 Her son reports that this long standing and not amendable to treatment. WBC very high with a lymphocyte predominance. Will follow. 02/01/2018 CML not on active treatment. follow WBC. (6) Thrombocytopenia Status: Chronic Assessment & Plan: Reportedly a chronic problem. Will follow. 02/01/2018 Chronic thrombocytopenia. Platelets continue to drift, repeat value in am. (7) Urinary retention Status: Resolved Assessment & Plan: Continue Banuelos catheter and repeat UA with culture. 02/01/2018 Urine culture with minimal growth Ecoli, < 75,000 colonies. Not on antibiotics currently. Low grade temp noted overnight, follow closely. DC Banuelos and monitor PVR today. Condition Stable. Time Spent: < 30 min Exam Sepsis Risk: No Definite Risk Problem Qualifiers (1) Pelvic fracture: Encounter type: initial encounter Pelvic bone location: multiple parts Fracture type: closed Fracture alignment: without disruption of pelvic ring Qualified Codes: S32.82XA - Multiple fractures of pelvis without disruption of pelvic ring, initial encounter for closed fracture (2) Constipation: Constipation type: unspecified constipation type Qualified Codes: K59.00 - Constipation, unspecified (3) Dementia: Dementia type: unspecified type Dementia behavioral disturbance: without behavioral disturbance Qualified Codes: F03.90 - Unspecified dementia without behavioral disturbance SIGIFREDO PEÑA MD Feb 02, 2018 08:01
--- NOTE | 2018-02-02 09:03 | Hospitalist Progress Note ---
Subjective Progress Notes Subjective She has no complaints this morning. Patient Complains of: Cardiovascular: No: Chest Pain Respiratory: No: Shortness of Breath Physical Exam Vital Signs Date Time Temp Pulse Resp B/P (MAP) Pulse Ox O2 Delivery O2 Flow Rate FiO2 02/02/18 07:19 86 02/02/18 07:19 Room Air 02/02/18 06:47 99.0 70 16 104/58 (73) 0.5 General Appearance: Alert, Awake, No Acute Distress, Afebrile Cardiovascular: Regular Rate and Rhythm Respiratory: No Respiratory Distress, Clear to Auscultation GI: Soft and Non-Tender Psych: Appropriate Mood & Affect Result Diagram: 02/02/18 0525 02/02/18 0525 Monitor Interpretation: Normal Sinus Rhythm Assessment and Plan Problems: (1) Pelvic fracture Status: Acute Assessment & Plan: She has a small hematoma around multiple pelvic fractures after a fall. She is being managed by general and orthopedic surgery. She has been cleared to WBAT. 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 Her son reports that this long standing and not amendable to treatment. (3) Thrombocytopenia Status: Chronic Assessment & Plan: Reportedly a chronic problem. She is not on Lovenox. (4) Dementia Status: Chronic Assessment & Plan: She is on chronic treatment with Geodon, Remeron, and prn Ativan. (5) Constipation Status: Chronic Assessment & Plan: She is chronically on methylcellulose and MiraLax. Will continue MiraLax and add Docusate. She can get MOM and Dulcolax suppository prn. (6) Urinary retention Onset Date: ~ 01/2018 Status: Resolved Assessment & Plan: Currently with a Banuelos, but will be discontinued today. She had 2 WBC in the urine. She has had temperatures about to 100 degrees. She is growing 50-75,000 cfu/ml of a GNR. At this point, would not treat unless she spikes a temperature. Exam Sepsis Risk: No Definite Risk Problem Qualifiers (1) Pelvic fracture: Encounter type: initial encounter Pelvic bone location: multiple parts Fracture type: closed Fracture alignment: without disruption of pelvic ring Qualified Codes: S32.82XA - Multiple fractures of pelvis without disruption of pelvic ring, initial encounter for closed fracture (2) Dementia: Dementia type: unspecified type Dementia behavioral disturbance: without behavioral disturbance Qualified Codes: F03.90 - Unspecified dementia without behavioral disturbance (3) Constipation: Constipation type: unspecified constipation type Qualified Codes: K59.00 - Constipation, unspecified PEGGY RAMOS [facility] Feb 02, 2018 09:03
[2018-02-02] MEDS: DOCUSATE SODIUM 100 MG CAP PO SCH ×2 (09:04→21:47)
[2018-02-02] MEDS: POLYETHYLENE GLYCOL 17 GM PKT PO SCH (09:04)
[2018-02-02] MEDS: SERTRALINE HCL 50 MG TAB PO SCH (09:06)
[2018-02-02] MEDS: PANTOPRAZOLE SOD 40 MG TABEC PO SCH (09:06)
[2018-02-02] MEDS: ZIPRASIDONE 20 MG CAP PO SCH ×2 (09:06→21:48)
[2018-02-02 12:17] VITALS: BP 116/64
--- NOTE | 2018-02-02 12:53 | SPEECH INITIAL EVALUATION ---
[*]INITIAL SPEECH THERAPY EVALUATION REPORT Cognitive Communication Assessment Patient Name: Ginna Morfin Date of Evaluation: 02/02/2018 Patient : [id number] Clinician: Antonia Rubio M.S., CCC-MASH PREPARATORY OPERATOR Treatment Dx: Severe Cognitive Communication Deficit BACKGROUND The pt is an 87 year old female admitted to [facility] following recent fall and subsequent pelvic fracture occurring at local long term home where she resides. Patient w/ baseline dementia, referred for ST assessment to analyze cognitive communicative status. STANDARDIZED ASSESSMENT Attempted to administer standardized assessment; however, pt exhibited significant difficulty following instructions, appeared to become increasingly confused when prompted w/ standardized assessment items, and was ultimately not appropriate for full participation. Informal assessment measures revealed disorientation to time, date, location, and situation (Oh its about evening, we must be getting ready to leave school soon). Pt w/ notable short-term memory deficits, including inability to recall items consumed during AM meal appx 30 minutes prior, and inability to retain single words following brief delay. Long-term memory also appeared impaired w/ reduced recall of biographical information. Patient was conversationally fluent w/ strong motivation to interact w/ others. However, subtle word finding difficulties were evident and pt was somewhat perseverative on previously discussed topics of conversation. Receptively, pt able to follow single increasing to bi-level instructions when provided with increased wait-time to process information. -Cognitive communicative domains demonstrating deficits: orientation, short- term memory, long-term memory, functional problem solving, processing speed, executive function, expressive language, receptive language. -Cognitive communicative Domains Demonstrating Strength: attention, pragmatics. Functional Communication Deficits: The patient does not have functional cognitive/communication for safety or independence. SNF continues to be appropriate. SPEECH: WFL DYSPHAGIA: WFL, screened w/ trials of thin liquids via straw and regular textures. Patient denies oral, pharyngeal, and esophageal dysphagia symptoms at this time. SUMMARY COGNITIVE / LINGUISTIC ASSESSMENT Severe cognitive communicative impairment Global Deterioration Scale: Pt appears to fall between levels 5 and 6 on the GDS. Pts at this level can no longer survive without assistance, exhibit disorientation across concepts, begin to lose knowledge of major biographical facts, require support for ADLs and basic decision making, may demonstrate personality and emotional changes, and may exhibit delusions, anxiety, or agitation. Functional Communication Deficits: The patient does not have functional cognitive/communication for safety, independence, or consistent communication of wants/needs. SNF continues to be appropriate. Patient may demonstrate difficulty with the following functional tasks: Initiating to seek assistance for basic wants and needs Executing multi-level instructions for safety and ambulation tasks Making decisions for participation in ADLs Orienting to novel or familiar environments ST services do not appear to be warranted at this time. Pt appropriate for return SNF placement following stabilization in medical status. RECOMMENDATIONS * Utilize supportive communication strategies and validation techniques to promote positive integration during hospital stay. * Avoid confrontational communication and attempts to orient to reality. * Regularly monitor patient to ensure basic wants/needs are met. * Arrange environment so all necessary items are within close proximity. * Utilize Y/N and multiple choice vs open-ended questions to improve effective communication. * Allow extra time to process information. Thank you for this referral. Please call [phone] Antonia Rubio M.S., CCC-MASH PREPARATORY OPERATOR MTDD
[2018-02-02 15:48] VITALS: BP 112/68
[2018-02-02 21:07] VITALS: BP 105/62
[2018-02-02] MEDS: MIRTAZAPINE 15 MG TAB PO SCH (21:46)
[2018-02-02] MEDS: MELATONIN 3 MG TAB PO SCH (21:47)
[2018-02-02] MEDS: ARTIFICIAL TEARS OINT 7 GM 7 GM TUBE OP SCH (21:56)
[2018-02-03 00:32] VITALS: BP 101/55
[2018-02-03 04:45] VITALS: BP 128/67
[2018-02-03 06:33] LABS: PLATELET COUNT, AUTOMATED 103 K/uL (150-450)
[2018-02-03 07:43] VITALS: BP 100/55
--- NOTE | 2018-02-03 08:03 | Short(Outpt) Discharge Summary ---
Discharge Summary Reason for Hosp/Final Diag: (1) Pelvic fracture Status: Acute Hospital Course & Plan: 87 yo female hemodynamically stable with small hematoma around multiple pelvic fractures. Admit with close observation, serial Hgb, Ortho and Internal Medicine consult, and PT/OT. 01/31/2018 Hgb has drifted a bit, though Vitals remain stable. Repeat Hgb at noon and in am. Discussed with Ortho who will see pt this am and clarify weight bearing status. 02/01/2018 Stable overnight. Able to walk with assist/WBAT yesterday. Hgb stable, continue to trend. Anticipate transfer back to [facility] in the am. 02/02/18: Doing well. Stable vitals. Platelets up a little this morning but Hb down. Will follow this. Pt apparently cannot get up to ambulate, even with assistance. Will have PT reevaluate her today while we follow her Hb. If Hb stable based on labs tomorrow morning and depending on PT/OT eval, she may be able to go back to [facility] tomorrow. 02/03/18: Doing well. H/H and platelets stable. PT/OT thinks she's at a point where she can continue PT/OT at [facility]. Will transfer back to [facility] today. (2) Fall in elderly patient Status: Acute Hospital Course & Plan: PT and OT eval when cleared. 02/01/2018 Continue to mobilize with assist as alessio. (3) Constipation Status: Chronic Hospital Course & Plan: She is chronically on methylcellulose and MiraLax. Will continue MiraLax and add Docusate. She can get MOM and Dulcolax suppository prn. Start Colace BID. 02/01/2018 Normal BM yesterday, continue PO cathartics. (4) Dementia Status: Chronic Hospital Course & Plan: Continue chronic Geodon, Remeron and prn Ativan. Neuro status seems at baseline. Cont to monitor. 02/01/2018 No acute neuro changes. Cont home meds and monitor closely. 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 Her son reports that this long standing and not amendable to treatment. WBC very high with a lymphocyte predominance. Will follow. 02/01/2018 CML not on active treatment. follow WBC. (6) Thrombocytopenia Status: Chronic Hospital Course & Plan: Reportedly a chronic problem. Will follow. 02/01/2018 Chronic thrombocytopenia. Platelets continue to drift, repeat value in am. (7) Urinary retention Onset Date: ~ 01/2018 Status: Resolved Hospital Course & Plan: Continue Banuelos catheter and repeat UA with culture. 02/01/2018 Urine culture with minimal growth Ecoli, < 75,000 colonies. Not on antibiotics currently. Low grade temp noted overnight, follow closely. DC Banuelos and monitor PVR today. Departure Discharge to: Longterm Discharge Instructions Home Meds Reported Medications Propylene Glycol/Peg 400/Pf (Systane 0.3-0.4% Eye Drops) 0.3 %-0.4 % Droperette , 2 DROP OP QDAY 01/31/18 Cholecalciferol (Vitamin D3) (VITAMIN D3) 1,000 Unit Tablet, 1000 UNIT PO BID, TAB 01/31/18 Ziprasidone Hcl (ZIPRASIDONE HCL) 60 Mg Capsule, 60 MG PO BID, CAPSULE 01/30/18 Vitamin E (VITAMIN E) 400 Unit Capsule, 400 UNIT PO QDAY, CAPSULE 01/30/18 Witgaviota Karen (TUCKS) 1 Each Med..pad, 1 EACH TP 01/30/18 Tramadol Hcl (TRAMADOL HCL) 50 Mg Tablet, 50 MG PO QDAY Y for PAIN, TAB 01/30/18 Sertraline Hcl (SERTRALINE HCL) 50 Mg Tablet, 3 TAB PO QDAY, TAB 01/30/18 Mirtazapine (MIRTAZAPINE) 15 Mg Tablet, 15 MG PO QHS 01/30/18 Polyethylene Glycol 3350 (MIRALAX) 17 Gm Powd.pack, 17 GM PO QDAY, PKT 01/30/18 Mag Hydrox/Aluminum Hyd/Simeth (Maalox Advanced Suspension) 200 Mg-200 Mg-20 Mg/ 5 Ml Oral.susp, 30 ML PO Y for DYSPEPSIA 01/30/18 Lorazepam (LORAZEPAM) 1 Mg Tab, 1 MG PO Q6H for Anxiety, TAB 01/30/18 Multivitamin (MULTIVITAMINS) 1 Each Capsule, 1 EACH PO QDAY, CAPSULE 01/30/18 Simethicone (SIMETHICONE) 125 Mg Tab.chew, 125 MG PO Y for GAS, TAB.CHEW 01/30/18 [place]-3 Fatty Acids/Fish Oil (FISH OIL 1,000 MG SOFTGEL) 1 Each Capsule, 1 EACH PO TID, CAPSULE 01/30/18 Docusate Sodium (COLACE) 100 Mg Capsule, 100 MG PO QHS, CAPSULE 01/30/18 Methylcellulose (With Sugar) (CITRUCEL POWDER) 454 Gm Powder, 2 GM PO QHS 01/30/18 Multivitamin/Iron/Folic Acid (CENTRUM COMPLETE MULTIVIT TAB) 1 Each Tablet, 1 EACH PO QDAY 01/30/18 Calcium Carbonate (CALCIUM) 600 Mg Tablet, 600 MG PO BID 01/30/18 Aspirin (ASPIR 81) 81 Mg Tablet.dr, 81 MG PO QDAY, TAB 01/30/18 Acetaminophen (TYLENOL) 325 Mg Tablet, 650 MG PO Q4H Y for PAIN/TEMP OVER 100.4 , TAB 01/30/18 Discontinued Reported Medications Cholecalciferol (Vitamin D3) (VITAMIN D-3) 2,000 Unit Capsule, 1000 UNIT PO, CAPSULE 01/30/18 Ziprasidone Hcl (ZIPRASIDONE HCL) 20 Mg Capsule, 20 MG PO, CAPSULE 01/30/18 [place]-3/Dha/Epa/Fish Oil (Fish Oil 1,000 mg Softgel) 1,000 Mg (120 Mg-180 Mg) Capsule 01/30/18 Methylcellulose (With Sugar) (CITRUCEL POWDER) 454 Gm Powder, 2 GM PO PRN 01/30/18 Diet: Regular Activity: As Tolerated Problem Qualifiers (1) Pelvic fracture: Encounter type: initial encounter Pelvic bone location: multiple parts Fracture type: closed Fracture alignment: without disruption of pelvic ring Qualified Codes: S32.82XA - Multiple fractures of pelvis without disruption of pelvic ring, initial encounter for closed fracture (2) Constipation: Constipation type: unspecified constipation type Qualified Codes: K59.00 - Constipation, unspecified (3) Dementia: Dementia type: unspecified type Dementia behavioral disturbance: without behavioral disturbance Qualified Codes: F03.90 - Unspecified dementia without behavioral disturbance SIGIFREDO PEÑA MD Feb 03, 2018 08:03
[2018-02-03] MEDS: SERTRALINE HCL 50 MG TAB PO SCH (08:24)
[2018-02-03] MEDS: POLYETHYLENE GLYCOL 17 GM PKT PO SCH (08:24)
[2018-02-03] MEDS: PANTOPRAZOLE SOD 40 MG TABEC PO SCH (08:24)
[2018-02-03] MEDS: ZIPRASIDONE 20 MG CAP PO SCH (08:24)
[2018-02-03] MEDS: DOCUSATE SODIUM 100 MG CAP PO SCH (08:24)
--- NOTE | 2018-02-03 08:25 | Hospitalist Progress Note ---
Subjective Progress Notes Subjective She has no complaints this morning. Physical Exam Vital Signs Date Time Temp Pulse Resp B/P (MAP) Pulse Ox O2 Delivery O2 Flow Rate FiO2 02/03/18 07:43 98.1 66 12 100/55 (70) 95 Nasal Cannula 1.0 General Appearance: Alert, Awake, No Acute Distress, Afebrile Cardiovascular: Regular Rate and Rhythm Respiratory: No Respiratory Distress, Clear to Auscultation Psych: Appropriate Mood & Affect Result Diagram: 02/03/18 0524 02/03/18 0524 Monitor Interpretation: Normal Sinus Rhythm Assessment and Plan Problems: (1) Pelvic fracture Status: Acute Assessment & Plan: She has a small hematoma around multiple pelvic fractures after a fall. She is being managed by general and orthopedic surgery. She has been cleared to WBAT. 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 Her son reports that this long standing and not amendable to treatment. (3) Thrombocytopenia Status: Chronic Assessment & Plan: Reportedly a chronic problem. She is not on Lovenox. (4) Dementia Status: Chronic Assessment & Plan: She is on chronic treatment with Geodon, Remeron, and prn Ativan. (5) Constipation Status: Chronic Assessment & Plan: She is chronically on methylcellulose and MiraLax. (6) Urinary retention Onset Date: ~ 01/2018 Status: Resolved Assessment & Plan: She had 2 WBC in the urine. She has had temperatures about to 100 degrees. She is growing 50-75,000 cfu/ml of a GNR. No treatment was required, she was asymptomatic of UTI and had no fever or increased WBC count. Exam Sepsis Risk: No Definite Risk Problem Qualifiers (1) Pelvic fracture: Encounter type: initial encounter Pelvic bone location: multiple parts Fracture type: closed Fracture alignment: without disruption of pelvic ring Qualified Codes: S32.82XA - Multiple fractures of pelvis without disruption of pelvic ring, initial encounter for closed fracture (2) Dementia: Dementia type: unspecified type Dementia behavioral disturbance: without behavioral disturbance Qualified Codes: F03.90 - Unspecified dementia without behavioral disturbance (3) Constipation: Constipation type: unspecified constipation type Qualified Codes: K59.00 - Constipation, unspecified PEGGY RAMOS [employer] CL[employer] OPERATOR Feb 03, 2018 08:25
[2018-02-03] MEDS: traMADol 50 MG TAB PO PRN (12:30)
== END 2018-02-03 13:15 | DRG 536 ==
LOC: ER 18:06 → MED 22:29
PROVIDERS: ADMIT Surgery; ATTEND Surgery
DX: S32.82XA Multiple fractures of pelvis without disruption of pelvic ring, initial encounter for closed fracture (principal); C94.81 Other specified leukemias, in remission; F33.3 Major depressive disorder, recurrent, severe with psychotic symptoms; K59.09 Other constipation; I25.10 Atherosclerotic heart disease of native coronary artery without angina pectoris; D69.6 Thrombocytopenia, unspecified; R33.8 Other retention of urine; R73.9 Hyperglycemia, unspecified; H35.30 Unspecified macular degeneration; J30.9 Allergic rhinitis, unspecified; F03.90 Unspecified dementia, unspecified severity, without behavioral disturbance, psychotic disturbance, mood disturbance, and anxiety; Z66 Do not resuscitate; W19.XXXA Unspecified fall, initial encounter; Y92.129 Unspecified place in nursing home as the place of occurrence of the external cause; Y99.8 Other external cause status
CPT/HCPCS: 36415; 71045; 72192; 81001; 82040; 82247; 82310; 82374; 82435; 82565; 82947; 83735; 84075; 84132; 84155; 84295; 84450; 84460; 84484; 84520; 85007; 85014; 85018; 85025; 85027; 85610; 85730; 86850; 86900; 86901; 86920; 87077; 87088; 87186; 93005; 97161; 97165; 99285; 99291; J3480; J7030

== ENCOUNTER → 2018-01-30 | Outpatient (CLI) | payer BC ==
[~2018-01-30] MED LIST: ACET-1966 PO; ASPI-1471 PO; CALC600T63 PO; CHOL10005 PO; CHOL200074 PO; DOCU-416 PO; LOR1 PO; MAG-65 PO; METH454P5 PO; MIRT-22 PO; MULT-768 PO; MULT1CAP59 PO; OMEG-23 PO; OMEG10007; POLY17PO25 PO; PROP1DRO6 OP; SERT-184 PO; SIME125T3 PO; SULF-198 PO; TRAM-420 PO; VITA-139 PO; WITC1MED12 TP; ZIPR20CA23 PO; ZIPR60CA18 PO
== END ==
LOC: AMB 17:41
PROVIDERS: ATTEND Nurse Practitioner
DX: M25.552 Pain in left hip (principal); W18.30XA Fall on same level, unspecified, initial encounter; Y92.099 Unspecified place in other non-institutional residence as the place of occurrence of the external cause
CPT/HCPCS: A0425; A0426

== ENCOUNTER 2018-02-06 07:03 | Emergency (ER) | payer BC ==
[~2018-02-06 07:03] MED LIST changes: -SULF-198 PO
--- NOTE | 2018-02-06 07:37 | ER Report ---
History and Physical Time Seen By MD: 07:05 Hx. of Stated Complaint: FELL 3 TIMES IN 6 HOURS. HIP HURTS. PREVIOUS PELVIC FRACTURE 3 DAYS AGO. BRUISING ON LEFT FORE ARM HPI/ROS CHIEF COMPLAINT: 3 falls in the last 6 hours HISTORY OF PRESENT ILLNESS: 87-year-old female resident of transitional care facility with pelvic fracture 3 days ago presents by ambulance to the emergency room after 3 recorded falls in the last 6 hours and 3 falls yesterday. Patient patient was able to ambulate despite having pelvic fracture 3 days ago. Pelvic was in the bathroom this morning and was found on the floor feculent continence but without complaining of pain. The patient had apparently fallen off the toilet. Remarkable problem list including dementia but the patient is able to answer questions fairly appropriately and does not complain of pain and is not grimacing with pain. 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 Significant history is that patient has chronic myelomonocytic leukemia, thrombocytopenia, and hyperglycemia as well as dementia. Anemia is not noted in the [facility] order summary report. REVIEW OF SYSTEMS: Constitutional: No fever, no chills. None reported Eyes: No discharge. ENT: No sore throat. No ENT T symptoms or problems reported Cardiovascular: No chest pain, no palpitations. Not reported Respiratory: No cough, no shortness of breath. Not reported Gastrointestinal: No abdominal pain, no vomiting. Patient does not complain of the pelvic pain despite the recent falls in the recent pelvic fracture. Genitourinary: No genitourinary symptoms reported on transfer nor answered in the affirmative by the patient. Musculoskeletal: No back pain. Patient notes that she does not have any back pain, neck pain, pelvic pain, or extremity pain. Skin: No rashes. Healing bruise left elbow from fall 3 days ago. Neurological: No headache. Allergies: Coded Allergies: No Known Drug Allergies (Unverified , 02/06/18) Home Meds Active Scripts Sulfamethoxazole/Trimet 800-160 Mg Tab (BACTRIM DS TABLET) 1 Each Tablet, 1 TAB PO Q12H for cystitis, #10 TAB 0 Refills Prov:NATALEE HOBSON MD 02/06/18 Reported Medications Propylene Glycol/Peg 400/Pf (Systane 0.3-0.4% Eye Drops) 0.3 %-0.4 % Droperette , 2 DROP OP QDAY 4/14/18 Cholecalciferol (Vitamin D3) (VITAMIN D3) 1,000 Unit Tablet, 1000 UNIT PO BID, TAB 01/31/18 Ziprasidone Hcl (ZIPRASIDONE HCL) 60 Mg Capsule, 60 MG PO BID, CAPSULE 01/30/18 Vitamin E (VITAMIN E) 400 Unit Capsule, 400 UNIT PO QDAY, CAPSULE 01/30/18 Carson Jones (TUCKS) 1 Each Med..pad, 1 EACH TP 01/30/18 Tramadol Hcl (TRAMADOL HCL) 50 Mg Tablet, 50 MG PO QDAY Y for PAIN, TAB 01/30/18 Sertraline Hcl (SERTRALINE HCL) 50 Mg Tablet, 3 TAB PO QDAY, TAB 01/30/18 Mirtazapine (MIRTAZAPINE) 15 Mg Tablet, 15 MG PO QHS 01/30/18 Polyethylene Glycol 3350 (MIRALAX) 17 Gm Powd.pack, 17 GM PO QDAY, PKT 01/30/18 Mag Hydrox/Aluminum Hyd/Simeth (Maalox Advanced Suspension) 200 Mg-200 Mg-20 Mg/ 5 Ml Oral.susp, 30 ML PO Y for DYSPEPSIA 01/30/18 Lorazepam (LORAZEPAM) 1 Mg Tab, 1 MG PO Q6H for Anxiety, TAB 01/30/18 Multivitamin (MULTIVITAMINS) 1 Each Capsule, 1 EACH PO QDAY, CAPSULE 01/30/18 Simethicone (SIMETHICONE) 125 Mg Tab.chew, 125 MG PO Y for GAS, TAB.CHEW 01/30/18 [place]-3 Fatty Acids/Fish Oil (FISH OIL 1,000 MG SOFTGEL) 1 Each Capsule, 1 EACH PO TID, CAPSULE 01/30/18 Docusate Sodium (COLACE) 100 Mg Capsule, 100 MG PO QHS, CAPSULE 01/30/18 Methylcellulose (With Sugar) (CITRUCEL POWDER) 454 Gm Powder, 2 GM PO QHS 01/30/18 Multivitamin/Iron/Folic Acid (CENTRUM COMPLETE MULTIVIT TAB) 1 Each Tablet, 1 EACH PO QDAY 01/30/18 Calcium Carbonate (CALCIUM) 600 Mg Tablet, 600 MG PO BID 01/30/18 Acetaminophen (TYLENOL) 325 Mg Tablet, 650 MG PO Q4H Y for PAIN/TEMP OVER 100.4 , TAB 01/30/18 Discontinued Reported Medications Aspirin (ASPIR 81) 81 Mg Tablet.dr, 81 MG PO QDAY, TAB 01/30/18 Cholecalciferol (Vitamin D3) (VITAMIN D-3) 2,000 Unit Capsule, 1000 UNIT PO, CAPSULE 01/30/18 Ziprasidone Hcl (ZIPRASIDONE HCL) 20 Mg Capsule, 20 MG PO, CAPSULE 01/30/18 [place]-3/Dha/Epa/Fish Oil (Fish Oil 1,000 mg Softgel) 1,000 Mg (120 Mg-180 Mg) Capsule 01/30/18 Methylcellulose (With Sugar) (CITRUCEL POWDER) 454 Gm Powder, 2 GM PO PRN 01/30/18 Hx Smoking: No Smoking Status: Unknown if Ever Smoked Exposure to Second Hand Smoke?: No Hx Substance Use Disorder: No Hx Alcohol Use: No Constitutional Vital Sign - Last 24 Hours 02/06/18 02/06/18 02/06/18 02/06/18 07:03 07:04 07:05 07:06 Temp 99.2 Pulse ??? 71 Resp 16 B/P (MAP) 153/135 (141) 117/58 117/58 (77) Pulse Ox 92 O2 Delivery Room Air 02/06/18 02/06/18 02/06/18 02/06/18 07:30 07:35 07:50 08:00 Pulse ? B/P (MAP) 108/61 (77) 109/60 (76) Pulse Ox 99 02/06/18 02/06/18 02/06/18 02/06/18 08:05 08:20 08:30 08:35 Pulse 67 ? B/P (MAP) 108/60 (76) Pulse Ox 99 100 99 02/06/18 02/06/18 02/06/18 02/06/18 08:50 09:00 09:05 09:20 Pulse 65 65 65 B/P (MAP) 101/59 (73) Pulse Ox 99 98 99 02/06/18 02/06/18 02/06/18 02/06/18 09:25 09:30 09:40 09:45 Pulse 67 66 68 B/P (MAP) 104/52 (69) Pulse Ox 99 98 98 02/06/18 02/06/18 10:00 10:15 Pulse 79 ??? B/P (MAP) 95/64 (74) Pulse Ox 99 Intake and Output 02/06/18 02/06/18 02/07/18 15:00 23:00 07:00 Output Total 100 ml Balance -100 ml Physical Exam General Appearance: The patient is alert, has no immediate need for airway protection and no signs of toxicity. She is lying comfortably on her back and is very pale. She is not grimacing and in no pain at this time. Eyes: Pupils equal and round no pallor or injection. Nonicteric very pale conjunctiva. ENT, Mouth: Mucous membranes are moist. Respiratory: There are no retractions, lungs are clear to auscultation. No rib tenderness or bruising. Cardiovascular: Regular rate and rhythm. Without gallops murmurs or rubs. Gastrointestinal: Abdomen is soft and non tender, no masses, bowel sounds normal. Abdominal bruit noted infra-epigastric. Neurological: Patient with proper speed responding in her speech. She is very pleasant. She has good manager of investigations strength bilaterally and can move her knees, ankles and toes without problems. Good sensation to the tips of her toes and fingers. Skin: Warm and dry, no rashes. Normal capillary refill to the tips of her toes which is less than 3 seconds and she does have dorsalis pedis pulses equal and symmetric. Musculoskeletal: Neck is supple non tender. Non-tender pelvis to AP compression. Lateral compression with slight tenderness on the left side. Extremities are nontender, nonswollen and have full range of motion. Left elbow with bruising from the elbow down the forearm and it is turning brown yellow so happened several days ago. She has full range of motion of shoulders elbows wrists and fingers. She also can move her knees ankles and feet and does this without complaints or problems. DIFFERENTIAL DIAGNOSIS: After history and physical exam differential diagnosis was considered for ground level fall/fall from toilet with possible reinjury to recent pelvic fracture. No evidence of recent bleed. Rule out anemia, infection , and worsening or new fracture. Medical Decision Making Data Points Result Diagram: 02/06/1870402/06/18 07 Laboratory Hematology Test 02/06/18 07:05 02/06/18 08:24 Red Blood Count 3.17 M/uL (4.17-5.56) Mean Corpuscular Volume 96.3 fL (80.0-96.0) Mean Corpuscular Hemoglobin 31.8 pg (26.0-33.0) Mean Corpuscular Hemoglobin Concent 33.0 g/dL (32.0-36.0) Red Cell Distribution Width 14.1 % (11.5-14.5) Mean Platelet Volume 7.6 fL (7.2-11.1) Neutrophils (%) (Auto) 14.2 % (39.4-72.5) Lymphocytes (%) (Auto) 83.6 % (17.6-49.6) Monocytes (%) (Auto) 2.0 % (4.1-12.4) Eosinophils (%) (Auto) 0.2 % (0.4-6.7) Basophils (%) (Auto) 0.0 % (0.3-1.4) Nucleated RBC Relative Count (auto) 0.1 /100WBC Neutrophils # (Auto) 5.1 K/uL (2.0-7.4) Lymphocytes # (Auto) 29.9 K/uL (1.3-3.6) Monocytes # (Auto) 0.7 K/uL (0.3-1.0) Eosinophils # (Auto) 0.1 K/uL (0.0-0.5) Basophils # (Auto) 0.0 K/uL (0.0-0.1) Nucleated RBC Absolute Count (auto) 0.04 K/uL Peripheral Blood Smear Yes Y/N Sodium Level 140 mmol/L (137-145) Potassium Level 3.4 mmol/L (3.5-5.0) Chloride Level 101 mmol/L (98-107) Carbon Dioxide Level 26 mmol/L (22-31) Blood Urea Nitrogen 23 mg/dl (7-18) Creatinine 0.60 mg/dl (0.52-1.04) Glomerular Filtration Rate Calc > 60.0 Random Glucose 132 mg/dl (75-110) Calcium Level 9.3 mg/dl (8.4-10.2) Urine Color Yellow Urine Clarity Cloudy Urine pH 6.0 pH (4.8-9.5) Urine Specific [place] 1.015 Urine Protein Negative mg/dL (NEGATIVE) Urine Glucose (UA) Negative mg/dL (NEGATIVE) Urine Ketones Negative mg/dL (NEGATIVE) Urine Blood Negative (NEGATIVE) Urine Nitrite Positive (NEGATIVE) Urine Bilirubin Negative (NEGATIVE) Urine Urobilinogen Negative mg/dL (0.2-1.9) Urine Leukocyte Esterase Negative (NEGATIVE) Urine RBC <1 /HPF (0-2/HPF) Urine WBC 1 /HPF (0-5/HPF) Urine Squamous Epithelial Cells None /LPF (NONE-FEW) Urine Amorphous Crystals Few /HPF Urine Bacteria Negative /HPF (NONE-FEW) Urine Mucus None /HPF (NONE-FEW) Chemistry Test 02/06/18 07:05 02/06/18 08:24 White Blood Count 35.8 k/uL (4.5-11.0) Red Blood Count 3.17 M/uL (4.17-5.56) Hemoglobin 10.1 g/dL (12.0-16.0) Hematocrit 30.6 % (34.0-47.0) Mean Corpuscular Volume 96.3 fL (80.0-96.0) Mean Corpuscular Hemoglobin 31.8 pg (26.0-33.0) Mean Corpuscular Hemoglobin Concent 33.0 g/dL (32.0-36.0) Red Cell Distribution Width 14.1 % (11.5-14.5) Platelet Count 167 K/uL (150-450) Mean Platelet Volume 7.6 fL (7.2-11.1) Neutrophils (%) (Auto) 14.2 % (39.4-72.5) Lymphocytes (%) (Auto) 83.6 % (17.6-49.6) Monocytes (%) (Auto) 2.0 % (4.1-12.4) Eosinophils (%) (Auto) 0.2 % (0.4-6.7) Basophils (%) (Auto) 0.0 % (0.3-1.4) Nucleated RBC Relative Count (auto) 0.1 /100WBC Neutrophils # (Auto) 5.1 K/uL (2.0-7.4) Lymphocytes # (Auto) 29.9 K/uL (1.3-3.6) Monocytes # (Auto) 0.7 K/uL (0.3-1.0) Eosinophils # (Auto) 0.1 K/uL (0.0-0.5) Basophils # (Auto) 0.0 K/uL (0.0-0.1) Nucleated RBC Absolute Count (auto) 0.04 K/uL Peripheral Blood Smear Yes Y/N Glomerular Filtration Rate Calc > 60.0 Calcium Level 9.3 mg/dl (8.4-10.2) Urine Color Yellow Urine Clarity Cloudy Urine pH 6.0 pH (4.8-9.5) Urine Specific [place] 1.015 Urine Protein Negative mg/dL (NEGATIVE) Urine Glucose (UA) Negative mg/dL (NEGATIVE) Urine Ketones Negative mg/dL (NEGATIVE) Urine Blood Negative (NEGATIVE) Urine Nitrite Positive (NEGATIVE) Urine Bilirubin Negative (NEGATIVE) Urine Urobilinogen Negative mg/dL (0.2-1.9) Urine Leukocyte Esterase Negative (NEGATIVE) Urine RBC <1 /HPF (0-2/HPF) Urine WBC 1 /HPF (0-5/HPF) Urine Squamous Epithelial Cells None /LPF (NONE-FEW) Urine Amorphous Crystals Few /HPF Urine Bacteria Negative /HPF (NONE-FEW) Urine Mucus None /HPF (NONE-FEW) Urinalysis Test 02/06/18 08:24 Urine Color Yellow Urine Clarity Cloudy Urine pH 6.0 pH (4.8-9.5) Urine Specific [place] 1.015 Urine Protein Negative mg/dL (NEGATIVE) Urine Glucose (UA) Negative mg/dL (NEGATIVE) Urine Ketones Negative mg/dL (NEGATIVE) Urine Blood Negative (NEGATIVE) Urine Nitrite Positive (NEGATIVE) Urine Bilirubin Negative (NEGATIVE) Urine Urobilinogen Negative mg/dL (0.2-1.9) Urine Leukocyte Esterase Negative (NEGATIVE) Urine RBC <1 /HPF (0-2/HPF) Urine WBC 1 /HPF (0-5/HPF) Urine Squamous Epithelial Cells None /LPF (NONE-FEW) Urine Amorphous Crystals Few /HPF Urine Bacteria Negative /HPF (NONE-FEW) Urine Mucus None /HPF (NONE-FEW) EKG/Imaging Imaging IMPRESSION: 1. Minimally displaced fractures involving the left pubis, left inferior pubic ramus, and left sacral joaquin. These fractures are not changed significantly from comparison CT pelvis 01/30/2018. 2. Mild widening of the left sacroiliac joint, stable. 3. No other fractures identified. ED Course/Re-evaluation ED Course 02/06/2018 8:49:12 am Impression: 1. Recurrent ground-level fall after pelvic fracture 3 days ago. 2. Pelvic fracture 3 days ago without surgery/ORIF. 3. 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 4. Dementia chronic 5. Polypharmacy: Concerns about Biers criteria on Geodon, Remeron, tramadol and Ativan. 6. Severe anemia: Concerns as patient is not on iron for this. Plan: Awaiting CT pelvis to check on change of fracture status. Ruling out urinary tract infection. 02/06/2018 9:44:41 am 1. Pelvic fracture essentially unchanged and patient without complaints of pain in this area. 2. CML in remission however increase in the white count was 10,000 in just the last several days. 3. UA positive for nitrites consistent with bladder infection. 4. Severe anemia possibility of adding oral iron should be considered. 5. With recurrent falls should evaluate polypharmacy with concerns according to Biers criteria on Geodon, Remeron, tramadol and Ativan. Plan: Patient will be placed on an antibiotic for the bladder infection. Suggest oral iron supplementation. Suggest evaluation according to Biers criteria for patient's medication list and respect to recurrent and increasing falls. Suggest follow-up PCP to follow leukocytosis with the increasing white count and anemia. Decision to Disposition Date: Feb 06, 2018 Decision to Disposition Time: 09:48 Critical Care Time Plan: Patient will be placed on an antibiotic for the bladder infection. Suggest oral iron supplementation. Suggest evaluation according to Biers criteria for patient's medication list and respect to recurrent and increasing falls. Suggest follow-up PCP to follow leukocytosis with the increasing white count and anemia. Depart Departure Latest Vital Signs Vital Signs Date Time Temp Pulse Resp B/P (MAP) Pulse Ox O2 Delivery O2 Flow Rate FiO2 02/06/18 10:15 ??? 02/06/18 10:00 95/64 (74) 99 02/06/18 07:05 99.2 16 Room Air Impression: Primary Impression: Fall in elderly patient Additional Impressions: UTI (urinary tract infection) Pelvic fracture H/O leukocytosis Anemia in chronic illness Condition: Condition Unchanged Disposition: ASSISTED LIVING FACILITY Referrals: [facility]IESEL TECHNICIAN [facility] (PCP) 5 Days New Scripts Sulfamethoxazole/Trimet 800-160 Mg Tab (BACTRIM DS TABLET) 1 Each Tablet 1 TAB PO Q12H for cystitis, #10 TAB 0 Refills Prov: NATALEE HOBSON MD 02/06/18 Departure Forms: ER Transition Record, Medications Reconciliation, Patient Portal Information Patient Instructions: Urinary Traction Infection in Older Adults (DC) Additional Instructions: Bactrim DS twice a day for 5 days for the bladder infection. Suggest oral iron supplementation. Suggest evaluation according to Biers criteria for patient's medication list and respect to recurrent and increasing falls. Remeron, tramadol, Ativan, and Geodon may be part of the problems with the patient's falls. Suggest follow-up PCP to follow leukocytosis with the increasing white count and anemia. Strongly suggest increase watchfulness as this patient is presenting as extremely high risk for falls. Call patient's PCP for further or changing orders. Problem Qualifiers Additional Impressions: UTI (urinary tract infection) Urinary tract infection type: acute cystitis Hematuria presence: with hematuria Qualified Codes: N30.01 - Acute cystitis with hematuria Pelvic fracture Encounter type: subsequent encounter Pelvic bone location: multiple parts Fracture type: closed Fracture alignment: without disruption of pelvic ring Fracture healing: with routine healing Qualified Codes: S32.82XD - Multiple fractures of pelvis without disruption of pelvic ring, subsequent encounter for fracture with routine healing NATALEE HOBSON MD Feb 06, 2018 07:37
[2018-02-06 07:46] LABS: PLATELET COUNT, AUTOMATED 167 K/uL (150-450)
--- NOTE | 2018-02-06 08:32 | RADIOLOGY IMAGING REPORT ---
[place] [facility] [place] NAME: Ginna Morfin : 1930 MR: [id number] V: [id number] EXAM DATE: ORDERING PHYSICIAN: NATALEE HOBSON TECHNOLOGIST: [place] [facility] [place] Ginna Morfin : 1930 Visit/Account:[id number] Date of Sevice: 02/06/2018 PELVIS W/O CONTRAST Indication: ground level fall 3 today. Pelvic fracture 3 days ago. Comparison: CT pelvis 01/30/2018. Technique: CT from the iliac crest through the pubic symphysis obtained without contrast. 3-D recons tructions were also reviewed. One of the following dose optimization techniques was utilized in the p erformance of this exam: Automated exposure control; adjustment of the mA and/or kV according to the patient's size; or use of an iterative reconstruction technique. Specific details can be referenced in the facility's radiology CT exam operational policy. Findings: Bones: Again seen is a fracture of the left pubis bone, and a fracture involving the left inferior pu bis ramus. Fracture is unchanged. Also seen is a nondisplaced fracture of the left sacral joaquin, uncha nged. There is minimal widening of the left sacroiliac joint, unchanged. The left iliac crest is inta ct. Proximal left femur is intact. Femoral head is in normal position the acetabulum. The right superior and inferior pubic ramus, right proximal femur, right iliac crest, and right sacra l joaquin are intact. Degenerative disc disease changes are seen at L5-S1. Soft tissues: There is a small hematoma adjacent to the left pubis bone. Diverticular changes are see n in the sigmoid colon. Urinary bladder and uterus are normal. Visualized portions of the kidney are unremarkable. IMPRESSION: 1. Minimally displaced fractures involving the left pubis, left inferior pubic ramus, and left sacral joaquin. These fractures are not changed significantly from comparison CT pelvis 01/30/2018. 2. Mild widening of the left sacroiliac joint, stable. 3. No other fractures identified. Report Dictated By: John Thomson at 02/06/2018 8:24 AM Report E-Signed By: John Thomson at 02/06/2018 8:29 AM WSN:[id number]
[2018-02-06] MEDS ORDERED: SULF-198 PO (09:56)
[2018-02-06 10:00] VITALS: BP 95/64
== END 2018-02-06 10:55 | disposition home or self-care (01) ==
LOC: ER 07:04
DX: S32.82XD Multiple fractures of pelvis without disruption of pelvic ring, subsequent encounter for fracture with routine healing (principal); N30.01 Acute cystitis with hematuria; D63.8 Anemia in other chronic diseases classified elsewhere; F03.90 Unspecified dementia, unspecified severity, without behavioral disturbance, psychotic disturbance, mood disturbance, and anxiety; W18.11XA Fall from or off toilet without subsequent striking against object, initial encounter; Z91.81 History of falling
CPT/HCPCS: 72192; 81001; 82310; 82374; 82435; 82565; 82947; 84132; 84295; 84520; 85025; 99284; A4353

== ENCOUNTER → 2018-02-06 | Outpatient (CLI) | payer BC | LOC: AMB 10:53 | PROVIDERS: ATTEND Nurse Practitioner | DX: R53.1 Weakness (principal) | CPT/HCPCS: A0425; A0428 ==

== ENCOUNTER → 2018-02-10 | Outpatient (REF) | payer BC ==
[~2018-02-10] MED LIST changes: +SULF-198 PO
== END ==
LOC: ZZLCC 11:51
PROVIDERS: ATTEND Nurse Practitioner Family
DX: D50.9 Iron deficiency anemia, unspecified (principal)
CPT/HCPCS: 82607; 82728; 82746; 83540; 83550

== ENCOUNTER → 2018-02-11 | Outpatient (REF) | payer BC ==
[2018-02-11 12:47] LABS: PLATELET COUNT, AUTOMATED 283 K/uL (150-450)
== END ==
LOC: ZZLCC 12:20
PROVIDERS: ATTEND Nurse Practitioner Family
DX: D69.6 Thrombocytopenia, unspecified (principal)
CPT/HCPCS: 82040; 82247; 82310; 82374; 82435; 82565; 82947; 84075; 84132; 84155; 84295; 84450; 84460; 84520; 85025

== ENCOUNTER → 2018-03-05 | Outpatient (REF) | payer BC ==
[2018-03-05 16:51] LABS: PLATELET COUNT, AUTOMATED 209 K/uL (150-450)
== END ==
LOC: ZZLCC 16:32
PROVIDERS: ATTEND Nurse Practitioner Family
DX: C93.11 Chronic myelomonocytic leukemia, in remission (principal)
CPT/HCPCS: 85025

== ENCOUNTER → 2018-07-08 | Outpatient (REF) | payer MEDICARE ==
[2018-07-08 12:55] LABS: PLATELET COUNT, AUTOMATED 155 K/uL (150-450)
== END ==
LOC: ZZLCC 12:40
PROVIDERS: ATTEND Nurse Practitioner Family
DX: R41.82 Altered mental status, unspecified (principal); R10.30 Lower abdominal pain, unspecified
CPT/HCPCS: 82040; 82247; 82310; 82374; 82435; 82565; 82947; 84075; 84132; 84155; 84295; 84450; 84460; 84520; 85025

== ENCOUNTER → 2018-07-10 | Outpatient (REF) | payer MEDICARE ==
[2018-07-10 15:26] LABS: PLATELET COUNT, AUTOMATED 143 K/uL (150-450)
== END ==
LOC: ZZLCC 14:39
PROVIDERS: ATTEND Nurse Practitioner Family
DX: R41.82 Altered mental status, unspecified (principal); R10.30 Lower abdominal pain, unspecified
CPT/HCPCS: 81001; 82040; 82247; 82310; 82374; 82435; 82565; 82947; 84075; 84132; 84155; 84295; 84450; 84460; 84520; 85025

== ENCOUNTER → 2019-01-11 | Outpatient (REF) | payer BC ==
[2019-01-11 08:51] LABS: PLATELET COUNT, AUTOMATED 132 K/uL (150-450)
== END ==
LOC: ZZLCC 08:18
PROVIDERS: ATTEND Nurse Practitioner Family
DX: Z79.899 Other long term (current) drug therapy (principal)
CPT/HCPCS: 82040; 82247; 82310; 82374; 82435; 82565; 82947; 84075; 84132; 84155; 84295; 84450; 84460; 84520; 85025

== ENCOUNTER 2019-03-23 22:25 | Emergency (ER) | payer BC ==
--- NOTE | 2019-03-23 22:59 | ER Report ---
History and Physical Time Seen By MD: 22:28 Hx. of Stated Complaint: PT FOUND DOWN IN POOL OF BLOOD. HPI/ROS CHIEF COMPLAINT: Found down HISTORY OF PRESENT ILLNESS: 89-year-old female with a history of dementia, CML in remission, [facility] who is DO NOT RESUSCITATE was brought in by EMS after she was found face down in her room. There was a palpable blood around her head on the floor. She is on no blood thinners. She was on a baby aspirin that's been discontinued. Patient has dementia and appears to be responding appropriately and mentating well. She complains of no neck pain. There is a small hematoma with an abrasion onto her forehead at the margin of the scalp. Patient voices no complaints. But once again has dementia. REVIEW OF SYSTEMS: Respiratory: No cough, no dyspnea. Cardiovascular: No chest pain, no palpitations. Gastrointestinal: No vomiting, no abdominal pain. Musculoskeletal: No back pain. Allergies: Coded Allergies: No Known Drug Allergies (Unverified , 02/06/18) Home Meds Active Scripts Tramadol Hcl (TRAMADOL HCL) 50 Mg Tablet, 1 TAB PO QDAY PRN for PAIN, #30 TAB 0 Refills Prov:HOME CALHOUN APRN [employer]-C 03/10/18 Sulfamethoxazole/Trimet 800-160 Mg Tab (BACTRIM DS TABLET) 1 Each Tablet, 1 TAB PO Q12H for cystitis, #10 TAB 0 Refills Prov:NATALEE HOBSON MD 02/06/18 Reported Medications Propylene Glycol/Peg 400/Pf (Systane 0.3-0.4% Eye Drops) 0.3 %-0.4 % Droperette, 2 DROP OP QDAY 01/31/18 Cholecalciferol (Vitamin D3) (VITAMIN D3) 1,000 Unit Tablet, 1000 UNIT PO BID, TAB 01/31/18 Ziprasidone Hcl (ZIPRASIDONE HCL) 60 Mg Capsule, 60 MG PO BID, CAPSULE 01/30/18 Vitamin E (VITAMIN E) 400 Unit Capsule, 400 UNIT PO QDAY, CAPSULE 01/30/18 Carson Jones (TUCKS) 1 Each Med..pad, 1 EACH TP 01/30/18 Sertraline Hcl (SERTRALINE HCL) 50 Mg Tablet, 3 TAB PO QDAY, TAB 01/30/18 Mirtazapine (MIRTAZAPINE) 15 Mg Tablet, 15 MG PO QHS 01/30/18 Polyethylene Glycol 3350 (MIRALAX) 17 Gm Powd.pack, 17 GM PO QDAY, PKT 01/30/18 Mag Hydrox/Aluminum Hyd/Simeth (Maalox Advanced Suspension) 200 Mg-200 Mg-20 Mg/5 Ml Oral.susp, 30 ML PO PRN for DYSPEPSIA 01/30/18 Lorazepam (LORAZEPAM) 1 Mg Tab, 1 MG PO Q6H for Anxiety, TAB 01/30/18 Multivitamin (MULTIVITAMINS) 1 Each Capsule, 1 EACH PO QDAY, CAPSULE 01/30/18 Simethicone (SIMETHICONE) 125 Mg Tab.chew, 125 MG PO PRN for GAS, TAB.CHEW 01/30/18 Johnson-3 Fatty Acids/Fish Oil (FISH OIL 1,000 MG SOFTGEL) 1 Each Capsule, 1 EACH PO TID, CAPSULE 01/30/18 Docusate Sodium (COLACE) 100 Mg Capsule, 100 MG PO QHS, CAPSULE 01/30/18 Methylcellulose (With Sugar) (CITRUCEL POWDER) 454 Gm Powder, 2 GM PO QHS 01/30/18 Multivitamin/Iron/Folic Acid (CENTRUM COMPLETE MULTIVIT TAB) 1 Each Tablet, 1 EACH PO QDAY 01/30/18 Calcium Carbonate (CALCIUM) 600 Mg Tablet, 600 MG PO BID 01/30/18 Acetaminophen (TYLENOL) 325 Mg Tablet, 650 MG PO Q4H PRN for PAIN/TEMP OVER 100.4, TAB 01/30/18 Past Medical/Surgical History Patient has a history of coronary artery disease, chronic myelogenous leukemia in remission, thrombocytopenia, hyperglycemia, macular degeneration, spinal stenosis, allergic rhinitis, osteoarthritis, 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, pelvic fracture, January 2018 Reviewed Nurses Notes: Yes Old Medical Records Reviewed: Yes Hx Smoking: No Smoking Status: Unknown if Ever Smoked Exposure to Second Hand Smoke?: No Hx Substance Use Disorder: No Hx Alcohol Use: No Constitutional Vital Sign - Last 24 Hours 03/23/19 03/23/19 03/23/19 03/23/19 22:28 22:30 22:59 23:04 Temp 98.5 Pulse 73 69 Resp 16 B/P (MAP) 99/64 99/64 (76) 104/68 (80) Pulse Ox 90 92 O2 Delivery Room Air 03/23/19 03/23/19 23:19 23:30 Pulse 73 B/P (MAP) 105/63 (77) Pulse Ox 91 Physical Exam Vital signs stable, blood pressure borderline low, pulse ox normal, afebrile General Appearance: The patient is alert, has no immediate need for airway protection and no current signs of toxicity. No acute distress, but patient has dementia. She is mentating well. There is a small nickel sized hematoma bruise on her forehead at the scalp line with a superficial deep scrape through it. HEENT: Pupils equal and round no injection. TMs normal, oropharynx without redness or exudate, mucous. Membranes are moist. No dental trauma facial bones intact on palpation Respiratory: Chest is non tender, lungs are clear to auscultation. Cardiac: regular rate and rhythm Gastrointestinal: Abdomen is soft and non tender, no masses, bowel sounds normal. Musculoskeletal: Neck: Neck is supple and non tender. Extremities have full range of motion and are non tender. No evidence of trauma, full range of motion Skin: No rashes or lesions. DIFFERENTIAL DIAGNOSIS: After history and physical exam differential diagnosis was considered for fall in the elderly including but not limited to intracranial injury, long bone and pelvic bone fracture, spinal injury, and intrathoracic injury. Medical Decision Making EKG/Imaging Imaging Results: CT scan of the head without contrast, cervical spine without contrast was obtained. The results of the study are CT of the cervical spine without contrast: Indication: Injury. Technique: Helical CT was performed through the cervical spine without contrast. Axial, coronal, and sagittal reconstructions are reviewed. One of the following dose optimization techniques was utilized in the performance of this exam: Automated exposure control; adjustment of the mA and/or kV according to the patient's size; or use of an iterative reconstruction technique. Specific details can be referenced in the facility's radiology CT exam operational policy. Comparison: None available Findings: There is no evidence of fracture, compression, subluxation, or other acute deformity. There is moderate/marked degenerative disc disease and osteoarthritis. There is generalized demineralization, consistent with osteoporosis. No paraspinal soft tissue abnormalities are identified. IMPRESSION: No evidence of fracture or acute deformity. HEAD CT: Indication: Injury. Technique: Contiguous axial sections were obtained from the base to the vertex without contrast enhancement. One of the following dose optimization techniques was utilized in the performance of this exam: Automated exposure control; adjustment of the mA and/or kV according to the patient's size; or use of an iterative reconstruction technique. Specific details can be referenced in the facility's radiology CT exam operational policy. Comparison: None available. Findings: There is no evidence of intra-axial or extra-axial hemorrhage. There is mild diffuse cortical atrophy. There is diffuse periventricular white matter disease, consistent with chronic microvascular changes. No focal areas of decreased or increased attenuation are identified. There is no evidence of mass, edema, or shift of the midline structures. The size, shape, and configuration of the ventricular system are normal. The skeletal structures are intact and unremarkable. There is no evidence of fracture or other acute deformity. There is diffuse opacification of the right maxillary sinus and ethmoid sinuses. There is significant opacification of the right frontal sinus and sphenoid sinus. There is minimal mucosal thickening in the left maxillary, ethmoid, and frontal sinuses. The mastoid air cells are clear. Impression: No evidence of hemorrhage, fracture, or acute intracranial abnormality. There are diffuse mucosal abnormalities in the paranasal sinuses. The study was read by the radiologist. I viewed the images myself on the PACS system. ED Course/Re-evaluation ED Course Patient was admitted to an examination room. H&P was done. The differential diagnoses was considered. On clinical examination. Patient has a superficial bruise to her forehead with an abrasion. There is no tenderness on palpation of her neck or her head. She is demented, though it's difficult to assess her mental status. A head and neck CT were performed without contrast were unremarkable for evidence of acute trauma. Patient's wound was cleaned and dressed. There was some question whether or not her tetanus status is current. She is likely immune since she's had numerous tetanus shots over her lifetime. [facility] previous [facility]. Decision to Disposition Date: Mar 23, 2019 Decision to Disposition Time: 23:37 Depart Departure Latest Vital Signs Vital Signs Date Time Temp Pulse Resp B/P (MAP) Pulse Ox O2 Delivery O2 Flow Rate FiO2 03/23/19 23:30 105/63 (77) 03/23/19 23:19 73 91 03/23/19 22:28 98.5 16 Room Air Impression: Primary Impression: Fall in elderly patient Additional Impressions: Forehead contusion Forehead abrasion Dementia Condition: Improved Disposition: HOME OR SELF-CARE Referrals: HOME CALHOUN APRN-C (PCP) Patient Instructions: Acute Wound Care (ED), Head Injury (ED) Problem Qualifiers Additional Impressions: Forehead contusion Encounter type: initial encounter Qualified Codes: S00.83XA - Contusion of other part of head, initial encounter Forehead abrasion Encounter type: initial encounter Qualified Codes: S00.81XA - Abrasion of other part of head, initial encounter Dementia Dementia type: unspecified type Dementia behavioral disturbance: with behavioral disturbance Qualified Codes: F03.91 - Unspecified dementia with behavioral disturbance AUTUMN BECKFORD DO Mar 23, 2019 22:59
[2019-03-23] MEDS ORDERED: DIPHTH/TETANUS/ACEL. PERTUSSIS IM ONLY ONE (23:00)
--- NOTE | 2019-03-23 23:23 | RADIOLOGY IMAGING REPORT ---
FACILITY: [facility] PATIENT NAME: Ginna Morfin : 1930 MR: [id number] V: [id number] EXAM DATE: ORDERING PHYSICIAN: AUTUMN BECKFORD TECHNOLOGIST: Location: [facility] - [place] Patient: Ginna Morfin : 1930 Visit/Account:[id number] Date of Sevice: 03/23/[address]: Indication: Injury. Technique: Contiguous axial sections were obtained from the base to the vertex without contrast enhan cement. One of the following dose optimization techniques was utilized in the performance of this exam: Autom ated exposure control; adjustment of the mA and/or kV according to the patient's size; or use of an i terative reconstruction technique. Specific details can be referenced in the facility's radiology CT exam operational policy. Comparison: None available. Findings: There is no evidence of intra-axial or extra-axial hemorrhage. There is mild diffuse cortic al atrophy. There is diffuse periventricular white matter disease, consistent with chronic microvascu lar changes. No focal areas of decreased or increased attenuation are identified. There is no evidenc e of mass, edema, or shift of the midline structures. The size, shape, and configuration of the ventr icular system are normal. The skeletal structures are intact and unremarkable. There is no evidence of fracture or other acute deformity. There is diffuse opacification of the right maxillary sinus and ethmoid sinuses. There is significant opacification of the right frontal sinus and sphenoid sinus. There is minimal mucosal thickening in the left maxillary, ethmoid, and frontal sinuses. The mastoid air cells are clear. Impression: No evidence of hemorrhage, fracture, or acute intracranial abnormality. There are diffuse mucosal abnormalities in the paranasal sinuses. Report Dictated By: Connor Petty MD at 03/23/2019 11:09 PM Report E-Signed By: Connor Petty MD at 03/23/2019 11:19 PM WSN:[id number]
--- NOTE | 2019-03-23 23:26 | RADIOLOGY IMAGING REPORT ---
FACILITY: [facility] - [place], [place] PATIENT NAME: Ginna Morfin : 1930 MR: [id number] V: [id number] EXAM DATE: ORDERING PHYSICIAN: AUTUMN BECKFORD TECHNOLOGIST: Location: [facility] [place] Patient: Ginna Morfin : 1930 Visit/Account:[id number] Date of Sevice: 03/23/2019 CT of the cervical spine without contrast: Indication: Injury. Technique: Helical CT was performed through the cervical spine without contrast. Axial, coronal, and sagittal reconstructions are reviewed. One of the following dose optimization techniques was utilized in the performance of this exam: Autom ated exposure control; adjustment of the mA and/or kV according to the patient's size; or use of an i terative reconstruction technique. Specific details can be referenced in the facility's radiology CT exam operational policy. Comparison: None available Findings: There is no evidence of fracture, compression, subluxation, or other acute deformity. There is moderate/marked degenerative disc disease and osteoarthritis. There is generalized demineralizati on, consistent with osteoporosis. No paraspinal soft tissue abnormalities are identified. IMPRESSION: No evidence of fracture or acute deformity. Report Dictated By: Connor Petty MD at 03/23/2019 11:19 PM Report E-Signed By: Connor Petty MD at 03/23/2019 11:22 PM WSN:[id number]
[2019-03-23 23:30] VITALS: BP 105/63
== END 2019-03-23 23:47 | disposition home or self-care (01) ==
LOC: ER 22:39
DX: S00.83XA Contusion of other part of head, initial encounter (principal); S00.81XA Abrasion of other part of head, initial encounter; F03.91 Unspecified dementia, unspecified severity, with behavioral disturbance; W19.XXXA Unspecified fall, initial encounter
CPT/HCPCS: 70450; 72125; 90471; 90715; 99284

== ENCOUNTER → 2019-03-23 | Outpatient (CLI) | payer BC | LOC: AMB 22:04 | PROVIDERS: ATTEND Nurse Practitioner | DX: S00.83XA Contusion of other part of head, initial encounter (principal); S09.90XA Unspecified injury of head, initial encounter; W19.XXXA Unspecified fall, initial encounter | CPT/HCPCS: A0425; A0427 ==

== ENCOUNTER → 2019-03-23 | Outpatient (CLI) | payer BC | LOC: AMB 23:35 | PROVIDERS: ATTEND Nurse Practitioner | DX: Z76.89 Persons encountering health services in other specified circumstances (principal) | CPT/HCPCS: A0425; A0428 ==